=== PATIENT | male | born 1955 | race Caucasian/White ===

== ENCOUNTER 2017-01-08 13:22 | Emergency (ER) | payer OTHER ==
[~2017-01-08] VITALS: Ht 177.8 cm; Wt 111.4 kg
[2017-01-08 13:26] VITALS: TEMP 36.3; Ht 177.8 cm; Wt 111.4 kg
[2017-01-08] MEDS ORDERED: KETOROLAC TROMETHAMINE 30 MG/ML VIAL IV STA (13:43)
[2017-01-08] MEDS ORDERED: DEXAMETHASONE SOD INJ 10 MG/ML VIAL IV ONE (13:45)
[2017-01-08] MEDS ORDERED: MoRPHine SULFATE 4 MG/ML 1 ML CARP\\VIAL IV ONE (13:45)
[2017-01-08] MEDS ORDERED: ACT/45 PO (13:55)
[2017-01-08] MEDS ORDERED: GLIP10TA3 PO (13:55)
[2017-01-08] MEDS ORDERED: CLOP1TAB15 PO (13:55)
[2017-01-08] MEDS ORDERED: GABA-113 PO (13:55)
[2017-01-08] MEDS ORDERED: ATOR-24 PO (13:55)
[2017-01-08] MEDS ORDERED: ASPI81TA28 PO (13:55)
[2017-01-08] MEDS ORDERED: SITA100T3 PO (13:55)
[2017-01-08] MEDS ORDERED: LISI10TA PO (13:55)
[2017-01-08] MEDS ORDERED: METF1000 PO (13:55)
[2017-01-08] MEDS ORDERED: METF-841 (13:55)
[2017-01-08 14:05] LABS: BASO % 0.4 %; BASO ABS # 0.04 K/uL (0-0.2); COMPLETE YES; EOS % 0.9 %; HEMATOCRIT 46.2 % (42-52); IG% 0.6 %; LYMPH % 18.4 %; LYMPH ABS # 1.81 K/uL (1.2-3.4); MEAN CELL VOLUME 93.1 fL (80-100); MEAN CORPUSCULAR HEMOGLOBIN 32.1 pg (25-34); MEAN CORPUSCULAR HGB CONC 34.4 g/dl (32-36); MEAN PLATELET VOLUME 9.8 fL (7.4-10.4); MONO % 8.5 %; NEUT % 71.2 %; PLATELET COUNT 268 K/uL (130-400); RED BLOOD COUNT 4.96 M/uL (4.7-6.1); WHITE BLOOD COUNT 9.82 K/uL (4.8-10.8)
[2017-01-08 14:21] LABS: BUN/CREATININE RATIO 25.9 (10-20); CALCIUM 9.8 mg/dl (8.5-10.1); CREATININE 0.92 mg/dl (0.60-1.40); POTASSIUM 4.3 mmol/L (3.5-5.1)
--- NOTE | 2017-01-08 14:36 | DIAGNOSTIC IMAGING REPORT ---
L-SPINE MIN 4 VIEWS ROUTINE HISTORY: Pain Left side back/hip pain COMPARISON: None. FINDINGS: There is no fracture. No subluxation. Mild degenerative disc change throughout. No evidence for compression deformity. IMPRESSION: Mild degenerative change. No acute process. The above report was generated using voice recognition software. It may contain grammatical, syntax or spelling errors. Electronically signed by: Justin Smith M.D. 01/08/2017 2:34 PM Dictated Date/Time: 01/08/2017 2:34 PM
--- NOTE | 2017-01-08 14:37 | DIAGNOSTIC IMAGING REPORT ---
L PELVIS/UNILATERAL HIP 2-3VIEWS CLINICAL HISTORY: Left side back/hip pain pain COMPARISON: None. 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 No evidence for acetabular protrusion. Mild degenerative change. Cortical margins appear to be intact. There is no evidence for soft tissue swelling. IMPRESSION: 1. No acute process. 2. 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 The above report was generated using voice recognition software. It may contain grammatical, syntax or spelling errors. Electronically signed by: Justin Smith M.D. 01/08/2017 2:35 PM Dictated Date/Time: 01/08/2017 2:35 PM
[2017-01-08] MEDS ORDERED: PRED50TA PO (15:53)
[2017-01-08] MEDS ORDERED: OXYC1TAB3 PO (15:53)
[2017-01-08 16:22] VITALS: BP 136/76; PULSE 76; O2SAT 96
--- NOTE | 2017-01-08 20:52 | EMERGENCY ROOM VISIT NOTE ---
History First contact with patient: 13:36 Chief Complaint: HIP PAIN Stated Complaint: BACK HIP PAIN History of Present Illness The patient is a 61 year old male who presents to the Emergency Room with complaints of left-sided low back pain as well as left hip pain for the past 4 or 5 days. The patient did go to his primary care physician and was started on anti-inflammatories and a Medrol Dosepak. This may have had some mild improvement of symptoms initially, but his pain has returned. The patient does not recall a distinct injury or trauma to explain his symptoms. He does have pain radiating down the left leg. No difficulty using the bathroom. He is a diabetic controlled with oral medication. He has not had fever or chills. No chronic back pain. He has not had imaging studies. He is walking with a walker at home to help prevent falling. He rates his discomfort a 6/10 that worsens with certain movement. Review of Systems More than 10 systems were reviewed and otherwise negative with the exception of history of present illness. Past Medical/Surgical History History of diabetes, hypertension, dyslipidemia, and cardiac disease Family History No pertinent family history Social History Smoking Status: Never Smoker Housing Status: lives with family Current/Historical Medications Scheduled Aspirin (Aspirin Ec), 81 MG PO DAILY Atorvastatin (Lipitor), 40 MG PO DAILY Clopidogrel (Plavix), 75 MG PO DAILY Gabapentin (Neurontin), 300 MG PO DAILY Glipizide (Glucotrol), 10 MG PO BID Lisinopril (Prinivil), 10 MG PO DAILY Metformin Hcl (Glucophage), 1,000 MG PO BID Oxycodone Immediate Rel Tab (Roxicodone Ir), 1-2 TAB PO Q6 Pioglitazone Hcl (Actos), 45 MG PO DAILY Prednisone (Prednisone), 50 MG PO DAILY Sitagliptin Phosphate (Januvia), 100 MG PO DAILY Physical Exam Vital Signs Date Time Temp Pulse Resp B/P (MAP) Pulse Ox O2 Delivery O2 Flow Rate FiO2 01/08/17 16:22 76 20 136/76 96 01/08/17 15:00 76 18 133/73 99 Room Air 01/08/17 13:26 36.3 84 18 161/83 97 Room Air Physical Exam VITALS: Vitals are noted on the nurse's note and reviewed by myself. Vital signs stable. GENERAL: Well-developed, well-nourished, white male, who is in no acute distress and resting comfortably. Patient is cooperative with the examination. HEAD: Normocephalic atraumatic. HEART: Regular rate and rhythm without murmurs gallops or rubs. LUNGS: Clear to auscultation bilaterally without wheezes, rales or rhonchi. No retractions or accessory muscle use. ABDOMEN: Positive normal bowel sounds x 4. Soft, nontender, without masses or organomegaly. No guarding or rebound tenderness. MUSCULOSKELETAL: Mild tenderness appreciated in the lower left lumbar region. No distinct step-off or severe paravertebral spasm. There appears to be some palpable tenderness into the very low left buttocks and into the left proximal femur. No erythema or edema suggestive of infection is noted. Negative straight leg raise. No saddle paresthesias. NEURO: Patient was alert and oriented to person place and time. CN II through XII grossly intact. Deep tendon reflexes 2+ throughout. Medical Decision & Procedures ER Provider Diagnostic Interpretation: L-SPINE MIN 4 VIEWS ROUTINE HISTORY: Pain Left side back/hip pain COMPARISON: None. FINDINGS: There is no fracture. No subluxation. Mild degenerative disc change throughout. No evidence for compression deformity. IMPRESSION: Mild degenerative change. No acute process. L PELVIS/UNILATERAL HIP 2-3VIEWS CLINICAL HISTORY: Left side back/hip pain pain COMPARISON: None. 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 No evidence for acetabular protrusion. Mild degenerative change. Cortical margins appear to be intact. There is no evidence for soft tissue swelling. IMPRESSION: 1. No acute process. 2. 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 Laboratory Results 01/08/17 13:55 Red Blood Count 4.96, Mean Corpuscular Volume 93.1, Mean Corpuscular Hemoglobin 32.1, Mean Corpuscular Hemoglobin Concent 34.4, Mean Platelet Volume 9.8, Neutrophils (%) (Auto) 71.2, Lymphocytes (%) (Auto) 18.4, Monocytes (%) (Auto) 8.5, Eosinophils (%) (Auto) 0.9, Basophils (%) (Auto) 0.4, Neutrophils # (Auto) 6.99, Lymphocytes # (Auto) 1.81, Monocytes # (Auto) 0.83, Eosinophils # (Auto) 0.09, Basophils # (Auto) 0.04 01/08/17 13:55 Test 10/28/17 13:55 White Blood Count 9.82 K/uL (4.8-10.8) Red Blood Count 4.96 M/uL (4.7-6.1) Hemoglobin 15.9 g/dL (14.0-18.0) Hematocrit 46.2 % (42-52) Mean Corpuscular Volume 93.1 fL (80-100) Mean Corpuscular Hemoglobin 32.1 pg (25-34) Mean Corpuscular Hemoglobin Concent 34.4 g/dl (32-36) Platelet Count 268 K/uL (130-400) Mean Platelet Volume 9.8 fL (7.4-10.4) Neutrophils (%) (Auto) 71.2 % Lymphocytes (%) (Auto) 18.4 % Monocytes (%) (Auto) 8.5 % Eosinophils (%) (Auto) 0.9 % Basophils (%) (Auto) 0.4 % Neutrophils # (Auto) 6.99 K/uL (1.4-6.5) Lymphocytes # (Auto) 1.81 K/uL (1.2-3.4) Monocytes # (Auto) 0.83 K/uL (0.11-0.59) Eosinophils # (Auto) 0.09 K/uL (0-0.5) Basophils # (Auto) 0.04 K/uL (0-0.2) RDW Standard Deviation 48.1 fL (36.4-46.3) RDW Coefficient of Variation 14.3 % (11.5-14.5) Immature Granulocyte % (Auto) 0.6 % Immature Granulocyte # (Auto) 0.06 K/uL (0.00-0.02) Erythrocyte Sedimentation Rate 16 mm/hr (0-14) Anion Gap 5.0 mmol/L (3-11) Est Creatinine Clear Calc Drug Dose 104.0 ml/min Estimated GFR () 102.9 Estimated GFR (Non- 88.8 BUN/Creatinine Ratio 25.9 (10-20) Calcium Level 9.8 mg/dl (8.5-10.1) Total Bilirubin 0.3 mg/dl (0.2-1) Aspartate Amino Transf (AST/SGOT) 8 U/L (15-37) Alanine Aminotransferase (ALT/SGPT) 20 U/L (12-78) Alkaline Phosphatase 69 U/L (45-117) Total Protein 7.9 gm/dl (6.4-8.2) Albumin 4.0 gm/dl (3.4-5.0) Globulin 3.9 gm/dl (2.5-4.0) Albumin/Globulin Ratio 1.0 (0.9-2) Medications Administered Medications (Trade) Dose Ordered Sig/Natali Route Start Time Stop Time Status Last Admin Dose Admin Dexamethasone Sodium Phosphate (Decadron Inj) 10 mg NOW ONCE IV 01/08/17 13:45 01/08/17 13:46 DC 01/08/17 13:59 10 MG Morphine Sulfate (MoRPHine SULFATE INJ) 4 mg NOW ONCE IV 01/08/17 13:45 01/08/17 13:46 DC 01/08/17 14:03 4 MG Ketorolac Tromethamine (Toradol Inj) 30 mg NOW STAT IV 01/08/17 13:43 01/08/17 13:45 DC 01/08/17 13:59 30 MG ED Course Physical exam and history were performed. Nursing notes, EMR, and Medication List were personally reviewed. Patient appears to have some low back pain that is radiating into his left leg. The patient has some tenderness into his buttocks which could represent sciatica or other etiology. There does seem to be a positional component with the discomfort, however I did elect to perform an IV and check blood work. The patient was medicated as above. Plain films were performed. The patient does not have a significantly elevated white blood cell count, anemia, bandemia, or significant electrolytic imbalance. His sugar is within expected levels. Sedimentation rate is negative. X-rays do not show evidence of significant acute findings. On reevaluation the patient continued to feel well. He is stable for discharge and evidently has an appointment in 2 days with his primary care physician. The patient will be given a course of prednisone and oxycodone. He is to monitor her sugar shortly. He was otherwise invited back to the ER with any new , worsening, or concerning symptoms. He was discharged home under the care of family who are acting as the salesperson driver today. The chart was completed utilizing [employer] Voice Recognition Software. Grammatical errors, random word insertions, pronoun errors, and incomplete sentences are an occasional consequence of this system due to software limitations, ambient noise, and hardware issues. Any formal questions or concerns about the content, text, or information contained within the body of this dictation should be directly addressed to the provider for clarification. . Medical Decision Differential diagnosis: Etiologies such as musculoskeletal, disc herniation, fracture, aortic disease, metastatic disease, cord compression, discitis, infection, renal colic, gastrointestinal, acute exacerbation of chronic back pain, sciatica, cauda equina, as well as others were entertained. Impression Primary Impression: Low back pain with sciatica Departure Information Dispostion Home / Self-Care Condition GOOD Prescriptions Prednisone (Prednisone) 50 Mg Tab 50 MG PO DAILY for 4 Days, #4 TAB Prov: Inocencio Pelaez PA-C 01/08/17 Oxycodone Immediate Rel Tab (ROXICODONE IR) 5 Mg Tab 1-2 TAB PO Q6 for Pain, #24 TAB Prov: Inocencio Pelaez PA-C 01/08/17 Forms HOME CARE DOCUMENTATION FORM, IMPORTANT VISIT INFORMATION Patient Instructions [facility] Additional Instructions You were seen and evaluated today on an emergency basis only. This is not a substitute for, or an effort to provide, complete comprehensive medical care. It is not possible to recognize and treat all injuries or illnesses in a single emergency department visit. For this reason it is recommended that you followup with your primary care physician as scheduled on Tuesday. For baseline pain relief you may alternate ibuprofen and acetaminophen every 4 hours for pain control. Take 600 mg ibuprofen (Advil) and then 4 hours later take 1000 mg acetaminophen (Tylenol). Do not take more than 3000 mg acetaminophen in a single day. Oxycodone (OxyIR) 5mg: Take ONE or TWO pills every SIX hours for breakthrough pain. Avoid alcohol, operating machinery or dangerous equipment, working on ladders or roofs, DRIVING, or situations where being under the influence may be dangerous. It is recommended to use an [id number] stool softener such as Colace, 100mg twice daily while taking this medication to avoid constipation. Take prednisone daily for the next 4 days. Watch your sugar while taking this medication. If you have sugar greater than 400 then stop this medicine. You are welcome to return to the emergency department anytime with new, worsening, or concerning symptoms.
== END 2017-01-08 16:24 | disposition home or self-care (01) ==
LOC: C.EDB 13:25 → C.EDA 16:24
DX: M54.42 Lumbago with sciatica, left side (principal); E11.9 Type 2 diabetes mellitus without complications; I10 Essential (primary) hypertension; E78.5 Hyperlipidemia, unspecified; I25.10 Atherosclerotic heart disease of native coronary artery without angina pectoris; Z79.82 Long term (current) use of aspirin

== ENCOUNTER 2019-08-01 11:48 | Observation (INO) ==
[2019-08-01] MEDS ORDERED: SODIUM CHLORIDE 0.9% 500 ML IV SCH (12:30)
--- NOTE | 2019-08-01 12:31 | Emergency Department Note ---
Impression & Plan RUQ abdominal pain, Acute pancreatitis ED Provider Note NAME: BERTRAND BOTELLO AGE: 64 SEX: M : 1955 ARRIVES VIA: Walk-In INFORMANT: [Patient] ED PROVIDER(S): [Beto Marroquin MD] CHIEF COMPLAINT: Right upper quadrant abdominal pain HISTORY OF PRESENT ILLNESS: The patient is a 64-year-old male presents with 6 days of right upper quadrant abdominal pain. The pain does radiate to the back and is a 6/10. It is described as a burning and an ache. Sitting still makes it better, movement makes it worse. Eating does not change the pain. There has been no nausea or diarrhea, no fever. The patient states that the pain really never goes completely away but again, sitting still seems to make it better. There has been no trauma. No urinary complaint. The patient states that he did see his doctor via telehealth yesterday, and an ultrasound was recommended. The patient was referred today for work-up. Of note, the patient does have a history of a Flo fundoplication. REVIEW OF SYSTEMS: See HPI for pertinent positives and negatives. A total of ten systems were reviewed and were otherwise negative. PMHx/PSHx: See Below SOCIAL HISTORY: See Below. PHYSICAL EXAM: GENERAL: Patient is in no acute distress. HEENT: No acute trauma, normocephalic atraumatic, mucous membranes moist, no nasal congestion, no scleral icterus. NECK: No stridor, no adenopathy, no meningismus, trachea is midline. LUNGS: Clear to auscultation bilaterally, no wheeze, no rhonchi, breath sounds equal. HEART: Without murmurs gallops or rubs, regular rate and rhythm. ABDOMEN: Soft, moderately tender in the right upper quadrant, bowel sounds positive, no hernias, no peritonitis. EXTREMITIES: No cyanosis or edema, full range of motion of all the joints withou t pain or difficulty, no signs for acute trauma. NEUROLOGIC: Oriented x 3, no acute motor or sensory deficits, no focal weakness. SKIN: No rash, no jaundice, no diaphoresis. DIFFERENTIAL DIAGNOSIS: Appendicitis, testicular torsion, infections, diverticulitis, UTI, obstruction, mesenteric ischemia, aortic pathology, inflammatory bowel disease, renal colic, PUD, pancreatitis, biliary pathology, hernia, volvulus, constipation, as well as other pathologies. EMERGENCY DEPARTMENT COURSE/PROCEDURES: Continuous Cardiac Monitoring: An order was placed for continuous cardiac monitoring. The monitor shows a rate of 81 with normal sinus rhythm. MEDICAL DECISION MAKING: There is no leukocytosis or concerning anemia. No significant electrolyte abnormality or kidney failure. No worrisome liver enzyme elevation. Lipase was not elevated. Urinalysis shows glucose, no evidence for infection, no significant hematuria. Chest film did not show free air, pneumonia or pneumothorax. Gallbladder ultrasound was read as unremarkable, no gallstones. Abdominal and pelvis CT shows evidence for pancreatitis, there was no bowel obstruction. The patient did not want anything for pain. He was given IV saline for hydration. The patient presents with ongoing epigastric/right upper quadrant abdominal pain. Work-up here does show pancreatitis as the likely cause for his discomfort. Given his discomfort for several days, given the findings on CT scan, a hospitalization was felt warranted. At this point, the cause for the pancreatitis is not clear. I spoke to the patient and case management. The on-call hospitalist has been consulted. 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 Diabetes (Chronic) Diabetes mellitus, type II H/O low back pain resolved since back surgery History of gastroesophageal reflux (GERD) HTN (hypertension) Hyperlipidemia Kidney stones Obesity Transient ischemic attack (TIA) 10 YEARS AGO - [facility] Surgical History History of appendectomy History of colonoscopy History of ear surgery RT History of laminectomy History of Flo fundoplication History of orchiectomy, unilateral RT History of surgery ANAL FISSURE REPAIR Family History Other Heart disease Stroke Social History Preferred Language: Arabic Communication Ability: Effective 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 Beliefs That Will Affect Care: None Current Living Situation: Spouse Other Information That Helps Us Care for You: No Feels Safe at Home: Yes Safety Concerns: Feels Safe At This Time Smoking Status: Former smoker Second Hand Exposure: No ; Hx Alcohol Use: No Hx Substance Use: No Allergies Allergies Allergy/AdvReac Type Severity Reaction Status Date / Time No Known Allergies Allergy Verified 08/01/19 12:35 Home Meds Home Medications Medication Instructions Recorded Confirmed aspirin 81 mg PO DAILY 01/15/18 08/01/19 atorvastatin [Lipitor] 40 mg PO DAILY 01/15/18 08/01/19 clopidogrel 75 mg PO DAILY 01/15/18 08/01/19 glipizide 10 mg PO BIDM 01/15/18 08/01/19 lisinopril 10 mg PO DAILY 01/15/18 08/01/19 metformin 1,000 mg PO BID 01/15/18 08/01/19 pioglitazone [Actos] 45 mg PO DAILY 01/15/18 08/01/19 sitagliptin [Januvia] 100 mg PO DAILY 01/15/18 08/01/19 gabapentin 300 mg PO HS 01/18/18 08/01/19 cholecalciferol (vitamin D3) 25 mcg PO DAILY 08/01/19 08/01/19 [Vitamin D3] cyanocobalamin (vitamin B-12) 1,000 mcg PO DAILY 08/01/19 08/01/19 [Vitamin B-12] Results & Data (ED) Vital Signs Vital Signs - 24 hr 08/01/19 11:53 08/01/19 12:27 08/01/19 12:51 Temperature 36.7 C Temperature Source Oral Pulse Rate 84 83 Pulse Rate from SpO2 Sensor 83 Pulse Rhythm Respiratory Rate 18 12 Respiratory Effort / Characteristics Non-Labored Spontaneous Respiratory Depth Normal Respiratory Pattern Regular Blood Pressure 159/93 H 154/89 H Blood Pressure Mean 115 108 Blood Pressure Position Sitting Pulse Oximetry 98 96 Oxygen Delivery Method Room Air Room Air Room Air Sepsis Recent Fever Within 48 Hours No Sepsis New/Unexplained Change in Mental Status No Sepsis Action Taken by Nursing No Action Required 08/01/19 13:00 08/01/19 13:45 08/01/19 13:54 Temperature Temperature Source Pulse Rate 83 62 78 Pulse Rate from SpO2 Sensor 82 78 Pulse Rhythm Regular Respiratory Rate 19 16 18 Respiratory Effort / Characteristics Respiratory Depth Respiratory Pattern Blood Pressure 128/66 140/97 Blood Pressure Mean 77 118 Blood Pressure Position Pulse Oximetry 95 98 98 Oxygen Delivery Method Room Air Room Air Room Air Sepsis Recent Fever Within 48 Hours Sepsis New/Unexplained Change in Mental Status Sepsis Action Taken by Nursing 08/01/19 14:00 08/01/19 14:47 08/01/19 15:00 Temperature Temperature Source Pulse Rate 80 79 81 Pulse Rate from SpO2 Sensor 80 79 80 Pulse Rhythm Respiratory Rate 17 17 17 Respiratory Effort / Characteristics Respiratory Depth Respiratory Pattern Blood Pressure 144/76 H 146/85 H 161/87 H Blood Pressure Mean 96 116 121 Blood Pressure Position Pulse Oximetry 98 98 98 Oxygen Delivery Method Room Air Room Air Sepsis Recent Fever Within 48 Hours Sepsis New/Unexplained Change in Mental Status Sepsis Action Taken by Nursing 08/01/19 15:30 Temperature Temperature Source Pulse Rate 81 Pulse Rate from SpO2 Sensor 81 Pulse Rhythm Respiratory Rate 17 Respiratory Effort / Characteristics Respiratory Depth Respiratory Pattern Blood Pressure 149/88 H Blood Pressure Mean 120 Blood Pressure Position Pulse Oximetry 99 Oxygen Delivery Method Room Air Sepsis Recent Fever Within 48 Hours Sepsis New/Unexplained Change in Mental Status Sepsis Action Taken by [facility] Medications Current Medication List: was personally reviewed by me Laboratory Data Attestation: I reviewed the patient's lab results. Result diagrams: 08/01/19 12:45 08/01/19 12:45 Lab Results 08/01/19 08/01/19 08/01/19 Range/Units 12:45 12:45 12:45 WBC 7.54 (4.8-10.8) K/uL RBC 5.03 (4.7-6.1) M/uL Hgb 15.8 (14.0-18.0) g/dL Hct 46.1 (42-52) % MCV 91.7 (80-100) fL MCH 31.4 (25-34) pg MCHC 34.3 (32-36) g/dL RDW Std Deviation 45.6 (36.4-46.3) fL RDW Coeff of Catherine 13.8 (11.5-14.5) % Plt Count 232 (130-400) K/uL MPV 10.1 (7.4-10.4) fL Immature Gran % (Auto) 0.4 % Neut % (Auto) 64.0 % Lymph % (Auto) 24.4 % [place] % (Auto) 9.2 % Eos % (Auto) 1.5 % Baso % (Auto) 0.5 % Immature Gran # (Auto) 0.03 H (0.00-0.02) K/uL Neut # (Auto) 4.83 (1.4-6.5) K/uL Lymph # (Auto) 1.84 (1.2-3.4) K/uL [place] # (Auto) 0.69 H (0.11-0.59) K/uL Eos # (Auto) 0.11 (0-0.5) K/uL Baso # (Auto) 0.04 (0-0.2) K/uL Sodium 138 (136-145) mmol/L Potassium 4.5 (3.5-5.1) mmol/L Chloride 103 (98-107) mmol/L Carbon Dioxide 25 (21-32) mmol/L Anion Gap 10.0 (3-11) BUN 15 (7-18) mg/dl Creatinine 1.05 (0.6-1.4) mg/dl Est Cr Clr Drug Dosing Not Reportable Est GFR ( Amer) 85.9 Est GFR (Non-Af Amer) 74.1 BUN/Creatinine Ratio 14.5 (10-20) Glucose 295 H (70-99) mg/dl Calcium 10.0 (8.5-10.1) mg/dl Total Bilirubin 0.7 (0.2-1) mg/dl AST 11 L (15-37) U/L ALT 30 (12-78) U/L Alkaline Phosphatase 117 (45-117) U/L Troponin I 0.029 (0-0.045) ng/ml Total Protein 7.8 (6.4-8.2) gm/dl Albumin 3.9 (3.4-5.0) gm/dl Globulin 3.9 (2.5-4.0) gm/dl Albumin/Globulin Ratio 1.0 (0.9-2) Lipase 102 (73-393) U/L Urine Color Yellow Urine Appearance Clear (Clear) Urine pH 5.0 (4.5-7.5) Ur Specific [place] > 1.045 H (1.000-1.030) Urine Protein Trace H (Negative) Urine Glucose (UA) 3+ H (Negative) Urine Ketones Negative (Negative) Urine Blood Negative (Negative) Urine Nitrite Negative (Negative) Urine Bilirubin Negative (Negative) Urine Urobilinogen Negative (Negative) Ur Leukocyte Esterase Negative (Negative) Urine WBC (Auto) 1-5 (0-5) /hpf Urine RBC (Auto) 0-4 (0-4) /hpf U Hyaline Cast (Auto) 1-5 (0-5) /lpf U Epithel Cells (Auto) 0-5 (0-5) /lpf Urine Bacteria (Auto) Negative (Negative) Administered Medications Lactated Ringer's (Lr) 1,000 mls @ 200 mls/hr IV .Q5H FAWAD Stop: 08/02/19 03:01 Last Admin: 08/01/19 17:12 Dose: 200 mls/hr Documented by: [id number] Morphine Sulfate (Morphine Sulfate) 3 mg IV Q4H PRN PRN Reason: Severe Pain Stop: 08/15/19 17:01 Last Admin: 08/01/19 17:43 Dose: 3 mg Documented by: [id number] Discontinued Medications Sodium Chloride (Nss) 500 mls @ 999 mls/hr IV .Q31M FAWAD Stop: 08/01/19 13:00 Last Infusion: 08/01/19 13:44 Dose: 0 mls/hr Documented by: [id number] Admin: 08/01/19 12:49 Dose: 999 mls/hr Documented by: [id number] Ioversol (Optiray 320 100ml) 94 ml IV ONCE PRN PRN Reason: Interaction Checking Stop: 08/05/19 14:31 Last Admin: 08/01/19 14:32 Dose: 94 ml Documented by: [id number] Imaging Data Radiologist's Impression: XR chest 1V portable HISTORY: Right-sided chest pain. COMPARISON: Chest 01/20/2018. FINDINGS: The lungs are clear. Cardiac silhouette is normal in size. No pleural effusions. No pneumothorax. IMPRESSION: No acute process. CT OF THE ABDOMEN AND PELVIS WITH CONTRAST CLINICAL HISTORY: Right upper quadrant abdominal pain. COMPARISON STUDY: CT of the abdomen and pelvis January 15, 2018. Right upper quadrant ultrasound performed earlier today. TECHNIQUE: Following IV administration of 94 mL of Optiray-320, axial images of the abdomen and pelvis were obtained from the lung bases to the proximal femurs. Images were reviewed in the axial, sagittal, and coronal planes. IV contrast was administered without complication. Automated exposure control was utilized for the study. A dose lowering technique was utilized adhering to the principles of ALARA. CT DOSE: 1560.16 mGy.cm FINDINGS: Lung bases are unremarkable. There is fatty infiltration of the liver. The spleen and adrenal gland are unremarkable. Note is made of a 1.4 cm cyst within lower pole of the right kidney. There is a probable cyst within the midpole of the left kidney. A few pancreatic parenchymal calcifications are no hilad. There is mild infiltration centered on the uncinate process of the pancreas. No peripancreatic fluid collections are present. No biliary or pancreatic ductal dilatation is present. There is no evidence for a bowel obstruction. Caliber and wall thickness of small and large bowel are normal. No suspicious osseous lesions are present. No urinary calculi are identified. IMPRESSION: 1. Mild infiltration adjacent to the uncinate process of the pancreas suggestive of acute pancreatitis. A few pancreatic parenchymal calcifications which suggest chronic pancreatitis. 2. Fatty infiltration of the liver. 3. No bowel obstruction. Blood Pressure Blood Pressure Findings: Elevated blood pressure Blood Pressure Disposition: further management by hospitalist Discharge Plan Visit Data *Final* Discharge Date/Time: 08/01/19 16:34 Chief Complaint: Abdominal Pain Stated Complaint: PAIN IN RT SIDE ED Provider: Beto Marroquin Discharge Problem: RUQ abdominal pain, Acute pancreatitis Patient Disposition: Admitted As Inpatient Condition: Good Discharge Instructions Interventions: ED Discharge Assessment Last Done: 08/01/19 16:34 Discharge Problem: Acute pancreatitis Qualifiers: Pancreatitis type: unspecified pancreatitis type Acute pancreatitis complication: no infection or necrosis Qualified Code(s): K85.90 - Acute pancreatitis without necrosis or infection, unspecified
[2019-08-01 12:55] LABS: Basophils # (auto) 0.04 K/uL (0-0.2); Basophils % (auto) 0.5 %; Eosinophils # (auto) 0.11 K/uL (0-0.5); Eosinophils % (auto) 1.5 %; Hematocrit (blood only) 46.1 % (42-52); Hemoglobin 15.8 g/dL (14.0-18.0); Immature Granulocytes # (auto) 0.03 K/uL (0.00-0.02); Immature Granulocytes % (auto) 0.4 %; Lymphocytes # (auto) 1.84 K/uL (1.2-3.4); Lymphocytes % (auto) 24.4 %; Mean Corpuscular Hemoglobin 31.4 pg (25-34); Mean Corpuscular Hgb Conc 34.3 g/dL (32-36); Mean Corpuscular Volume 91.7 fL (80-100); Mean Platelet Volume 10.1 fL (7.4-10.4); Monocytes # (auto) 0.69 K/uL (0.11-0.59); Monocytes % (auto) 9.2 %; Neutrophils # (auto) 4.83 K/uL (1.4-6.5); Platelet Count 232 K/uL (130-400); RDW Coefficient of Variation 13.8 % (11.5-14.5); RDW Standard Deviation 45.6 fL (36.4-46.3); Red Blood Count 5.03 M/uL (4.7-6.1); White Blood Count 7.54 K/uL (4.8-10.8)
--- NOTE | 2019-08-01 13:07 | XRay Report ---
XR chest 1V portable HISTORY: Right-sided chest pain. COMPARISON: Chest 01/20/2018. FINDINGS: The lungs are clear. Cardiac silhouette is normal in size. No pleural effusions. No pneumot horax. IMPRESSION: No acute process. ACT 112: Negative or not required by law. Electronically signed by: Steve Dao M.D. 08/01/2019 1:06 PM
[2019-08-01 13:20] LABS: Alanine Aminotransferase 30 U/L (12-78); Albumin Level 3.9 gm/dl (3.4-5.0); Aspartate Aminotransferase 11 U/L (15-37); BUN Creatinine Ratio 14.5 (10-20); Blood Urea Nitrogen 15 mg/dl (7-18); Carbon Dioxide 25 mmol/L (21-32); Chloride 103 mmol/L (98-107); Est GFR (African American) 85.9; Est GFR (Non-African American) 74.1; Glucose 295 mg/dl (70-99); Lipase 102 U/L (73-393); Potassium 4.5 mmol/L (3.5-5.1); Sodium 138 mmol/L (136-145)
[2019-08-01 13:21] LABS: Bacteria Urine Automated Negative (Negative); Bilirubin Urine Negative (Negative); Blood Urine Negative (Negative); Color Urine Yellow; Epithelial Cell Urine Auto 0-5 /lpf (0-5); Glucose Urine UA 3+ (Negative); Ketones Urine Negative (Negative); Leukocyte Esterase Urine Negative (Negative); Nitrite Urine Negative (Negative); Protein Urine Trace (Negative); RBC Urine Automated 0-4 /hpf (0-4); Specific Gravity Urine > 1.045 (1.000-1.030); Urobilinogen Urine Negative (Negative)
[2019-08-01 13:25] LABS: Alkaline Phosphatase 117 U/L (45-117); Bilirubin,Total 0.7 mg/dl (0.2-1); Globulin 3.9 gm/dl (2.5-4.0); Total Protein 7.8 gm/dl (6.4-8.2); Troponin I 0.029 ng/ml (0-0.045)
[2019-08-01 13:29] LABS: Appearance Urine Clear (Clear)
--- NOTE | 2019-08-01 13:45 | Ultrasound Report ---
ABDOMINAL ULTRASOUND, RIGHT UPPER QUADRANT HISTORY: ruq pain. COMPARISON: Abdomen and pelvis CT 01/15/2018. FINDINGS: Pancreas: The pancreatic head and tail are obscured by overlying bowel gas. The remaining portions of the pancreas are within normal limits. Liver: The liver is echogenic consistent with fatty change. Mildly enlarged measuring 19 cm in length . Gallbladder: No gallbladder wall thickening. No gallstones. CBD: 5 mm. Right kidney: No hydronephrosis. IMPRESSION: 1. Normal gallbladder. No gallstones. 2. Hepatomegaly demonstrating fatty change. ACT 112: Negative or not required by law. Electronically signed by: Steve Dao M.D. 08/01/2019 1:44 PM
[2019-08-01] MEDS ORDERED: IOVERSOL 100ml IV PRN (14:32)
--- NOTE | 2019-08-01 15:13 | CT Scan Report ---
CT OF THE ABDOMEN AND PELVIS WITH CONTRAST CLINICAL HISTORY: Right upper quadrant abdominal pain. COMPARISON STUDY: CT of the abdomen and pelvis January 15, 2018. Right upper quadrant ultrasound per formed earlier today. TECHNIQUE: Following IV administration of 94 mL of Optiray-320, axial images of the abdomen and pelvi s were obtained from the lung bases to the proximal femurs. Images were reviewed in the axial, sagitt al, and coronal planes. IV contrast was administered without complication. Automated exposure contro l was utilized for the study. A dose lowering technique was utilized adhering to the principles of A SHIVAM. CT DOSE: 1560.16 mGy.cm FINDINGS: Lung bases are unremarkable. There is fatty infiltration of the liver. The spleen and adren al gland are unremarkable. Note is made of a 1.4 cm cyst within lower pole of the right kidney. There is a probable cyst within the midpole of the left kidney. A few pancreatic parenchymal calcification s are noted. There is mild infiltration centered on the uncinate process of the pancreas. No peripanc reatic fluid collections are present. No biliary or pancreatic ductal dilatation is present. There is no evidence for a bowel obstruction. Caliber and wall thickness of small and large bowel are normal. No suspicious osseous lesions are present. No urinary calculi are identified. IMPRESSION: 1. Mild infiltration adjacent to the uncinate process of the pancreas suggestive of acute pancreatiti s. A few pancreatic parenchymal calcifications which suggest chronic pancreatitis. 2. Fatty infiltration of the liver. 3. No bowel obstruction. ACT 112: Negative or not required by law. Electronically signed by: Kristian Duckworth M.D. 08/01/2019 3:11 PM
--- NOTE | 2019-08-01 16:42 | History & Physical Report ---
Date of Service August 01, 2019 Assessment & Plan (1) RUQ abdominal pain: (2) Acute pancreatitis: Possible pancreatitis Pt is 64 y/o M with PMH DM II, HTN, dyslipidemia, possible TIA, history denies any fundoplication, history of testicular cancer s/p right orchiectomy and chemo in 2010 scented to ER with complaint of right upper quadrant burning pain x5 days. Decreased appetite. Denies fever/chills, N/V/D/C In ER pt afebrile, P: 84, R: 18, BP: 159/93, 98% on RA. No leukocytosis, LFTs W NL, Lipase normal Gallbladder US 1. Normal gallbladder. No gallstones. 2. Hepatomegaly demonstrating fatty change. CT abd/pelvis:1. Mild infiltration adjacent to the uncinate process of the pancreas suggestive of acute pancreatitis. A few pancreatic parenchymal calcifications which suggest chronic pancreatitis. 2. Fatty infiltration of the liver. 3. No bowel obstruction. -DDX: pancreatitis, musculoskeletal abdominal pain -NPO -LR @200ml/hr -Zofran, morphine prn -Lipase, CMP, CBC, lipid panel in am -May need to consider GI consult (3) Diabetes mellitus, type II: A1c: 10.8 on 07/02/2019 BSG 295 in ER -Hold glipizide, metformin, actos, januvia -Novolog, Lantus sliding scale per protocol (4) Transient ischemic attack (TIA): -Continue aspirin, plavix (5) HTN (hypertension): -Continue lisinopril (6) Hyperlipidemia: -Hold statin for now while NPO DVT Prophylaxis -SCDs Full Code as per discussion with pt Follows with Dr Liocna for routine care Pt was seen and care coordinated with Dr Eden. See addendum History of Present Illness Chief Complaint: abdominal pain Primary Care Provider: Zechariah Licona MD Pt is 64 y/o M with PMH DM II, HTN, dyslipidemia, possible TIA, history denies any fundoplication, history of testicular cancer s/p right orchiectomy and chemo in 2010 scented to ER with complaint of right upper quadrant pain x5 days.Patient describes the pain as burning sensation. Has been applying heating pad or taking a warm shower which helps relieve pain sometimes. Patient reports decreased appetite. Denies any increased abdominal pain with eating. Denies nausea, vomiting, diarrhea, constipation, fever, chills. This morning had half a cup of milk and a cookie. Patient states that he lives 40 pound bags of mulch. Denies any known injury or trauma. Denies any new medications or medication changes. Denies diaphoresis, MCKEON, dizziness, syncope, vision changes, neck pain, CP, SOB, orthopnea, palpitations, cough, sore throat, choking, otalgia, rhinorrhea, paresthesias, weakness, extremity weakness, extremity edema, rashes, urinary symptoms. Allergies Allergy/AdvReac Type Severity Reaction Status Date / Time No Known Allergies Allergy Verified 08/01/19 12:35 Home Medications Home Medications Medication Instructions Recorded Confirmed Type aspirin 81 mg PO DAILY 01/15/18 08/01/19 History atorvastatin [Lipitor] 40 mg PO DAILY 01/15/18 08/01/19 History clopidogrel 75 mg PO DAILY 01/15/18 08/01/19 History glipizide 10 mg PO BIDM 01/15/18 08/01/19 History lisinopril 10 mg PO DAILY 01/15/18 08/01/19 History metformin 1,000 mg PO BID 01/15/18 08/01/19 History pioglitazone [Actos] 45 mg PO DAILY 01/15/18 08/01/19 History sitagliptin [Januvia] 100 mg PO DAILY 01/15/18 08/01/19 History gabapentin 300 mg PO HS 01/18/18 08/01/19 History cholecalciferol (vitamin D3) 25 mcg PO DAILY 08/01/19 08/01/19 History [Vitamin D3] cyanocobalamin (vitamin B-12) 1,000 mcg PO DAILY 08/01/19 08/01/19 History [Vitamin B-12] 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 Diabetes (Chronic) Diabetes mellitus, type II H/O low back pain resolved since back surgery History of gastroesophageal reflux (GERD) HTN (hypertension) Hyperlipidemia Kidney stones Obesity [facility] Surgical History History of appendectomy History of colonoscopy History of ear surgery RT History of laminectomy History of Flo fundoplication History of orchiectomy, unilateral RT History of surgery ANAL FISSURE REPAIR Family History Other Heart disease Stroke Social History Preferred Language: Bahraini Communication Ability: Effective Toe Stripper Required: No Beliefs That Will Affect Care: None Current Living Situation: Spouse Feels Safe at Home: Yes Smoking Status: Former smoker Second Hand Exposure: No ; Hx Alcohol Use: No Hx Substance Use: No Review of Systems Review of Systems: All systems reviewed & are unremarkable except as noted in HPI & below Physical Exam Physical Exam: General: no distress, obese Head: normocephalic, atraumatic Eyes: PERRL, EOM's intact, conjunctiva non-injected, anicteric ENT: normal inspection external ears, nose, mucous membranes moist Neck: supple, trachea midline Lungs: clear, no respiratory distress, no wheezing/rhonchi/rales CV: RRR, no murmur, no pretibial edema Abd: normal BS, soft, protuberant, mild tenderness to palpation RUQ and epigastric region without rebound or guarding; no rashes or skin discoloration noted Ext: no cyanosis, no calf tenderness Neuro: A&O x 3, no focal deficits noted, normal affect Skin: warm, dry Results & Data Results & Data ([facility]) Vital Signs (Past 12 Hours) Vital Signs Temp Pulse Resp BP Pulse Ox 08/01/19 16:30 88 20 163/92 H 99 08/01/19 16:00 78 17 142/92 H 98 08/01/19 15:30 81 17 149/88 H 99 08/01/19 15:00 81 17 161/87 H 98 08/01/19 14:47 79 17 146/85 H 98 08/01/19 14:00 80 17 144/76 H 98 08/01/19 13:54 78 18 140/97 98 08/01/19 13:45 62 16 98 08/01/19 13:00 83 19 128/66 95 08/01/19 12:51 83 12 154/89 H 96 08/01/19 11:53 36.7 C 84 18 159/93 H 98 Laboratory Results Short CBC 08/01/19 08/01/19 Range/Units 12:45 12:45 WBC 7.54 (4.8-10.8) K/uL Hgb 15.8 (14.0-18.0) g/dL Hct 46.1 (42-52) % Plt Count 232 (130-400) K/uL Troponin I 0.029 (0-0.045) ng/ml BMP 08/01/19 12:45 Sodium 138 Potassium 4.5 Chloride 103 Carbon Dioxide 25 BUN 15 Creatinine 1.05 Glucose 295 H Calcium 10.0 Cardiac Enzymes 08/01/19 Range/Units 12:45 Troponin I 0.029 (0-0.045) ng/ml Liver Function 08/01/19 Range/Units 12:45 Total Bilirubin 0.7 (0.2-1) mg/dl AST 11 L (15-37) U/L ALT 30 (12-78) U/L Alkaline Phosphatase 117 (45-117) U/L Albumin 3.9 (3.4-5.0) gm/dl Urine 08/01/19 Range/Units 12:45 Urine Color Yellow Urine Appearance Clear (Clear) Urine pH 5.0 (4.5-7.5) Ur Specific [place] > 1.045 H (1.000-1.030) Urine Protein Trace H (Negative) Urine Glucose (UA) 3+ H (Negative) Diagnostic Findings GALLBLADDER US: IMPRESSION: 1. Normal gallbladder. No gallstones. 2. Hepatomegaly demonstrating fatty change. CT ABD/PELVIS: IMPRESSION: 1. Mild infiltration adjacent to the uncinate process of the pancreas suggestive of acute pancreatitis. A few pancreatic parenchymal calcifications which suggest chronic pancreatitis. 2. Fatty infiltration of the liver. 3. No bowel obstruction. CXR: IMPRESSION: No acute process. Code Status & VTE Plan VTE Prophylaxis Plan VTE Prophylaxis will be ordered: Yes Supervising Physician Co-Signing Physician Notes Pt was seen and examined. Agreed with Keysha SAUCEDA exam, assessment and plan. 64 y/o M with PMH DM II, HTN, dyslipidemia, possible TIA, history denies any fundoplication, history of testicular cancer s/p right orchiectomy and chemo in 2010 scented to ER with complaint of right upper quadrant pain. Pt said that he started to have RUQ tenderness since last . he said that today the pain got worst. Denies any alcohol used. He said that he has not been eating much. Denies any chest pain, palpitation, dizziness and SOB. Gallbladder U/S showed normal gallbladder with no gallstones. CT abd/pelvis showed mild infiltration adjacent to the uncinate process of the pancreas suggestive of acute pancreatitis. A few pancreatic parenchymal calcifications which suggest chronic pancreatitis. Lipase normal. Received IV fluid and pain med in the ER. Will continue IVF. Will keep NPO for now. Will repeat lipase in am. Consider GI consult to arrange for EUS on discharge. Will continue Monitor closely. MD Meek (1) Acute pancreatitis Acute pancreatitis complication: no infection or necrosis Pancreatitis type: unspecified pancreatitis type Qualified Code(s): K85.90 - Acute pancreatitis without necrosis or infection, unspecified
[2019-08-01] MEDS ORDERED: ONDANSETRON INJ 2 MG/ML 2 ML VIAL IV PRN (17:02)
[2019-08-01] MEDS ORDERED: GLUCOSE 10 TABS/TUBE PO PRN (17:09)
[2019-08-01] MEDS ORDERED: CARBOHYDRATES FOR HYPOGLYCEMIA PO PRN (17:09)
[2019-08-01] MEDS ORDERED: GLUCOSE 40% GEL 15 GM TUBE PO PRN (17:09)
[2019-08-01] MEDS ORDERED: GLUCAGON FOR INJ 1 MG VIAL SQ PRN (17:09)
[2019-08-01] MEDS ORDERED: DEXTROSE 50% 50 ML SYRINGE IV PRN (17:09)
[2019-08-01] MEDS: LACTATED RINGER'S 1,000 ML IV SCH ×2 (17:12→22:22)
[2019-08-01] MEDS: MoRPHine SULFATE 4 MG/ML 1 ML CARP\\VIAL IV PRN ×2 (17:43→21:58)
[2019-08-01] MEDS ORDERED: Nursing to Pharmacy Communication ONE (18:36)
[2019-08-01] MEDS: ACETAMINOPHEN 325 MG TAB PO PRN (18:42)
[2019-08-01] MEDS: INSULIN ASPART 100 UNITS/ML 3 ML PEN SC SCH (19:23)
[2019-08-01] MEDS ORDERED: INSULIN GLARGINE SOLOSTAR 100 UNITS/ML 3 ML PEN SC SCH (21:00)
[2019-08-01] MEDS ORDERED: INSULIN ASPART 100 UNITS/ML 3 ML PEN SC SCH (21:00)
[2019-08-01] MEDS: GABAPENTIN 300 MG CAP PO SCH (21:59)
[2019-08-02] MEDS: ACETAMINOPHEN 325 MG TAB PO PRN ×2 (00:02→07:53)
[2019-08-02] MEDS: INSULIN ASPART 100 UNITS/ML 3 ML PEN SC SCH ×5 (00:03→23:56)
[2019-08-02] MEDS: MoRPHine SULFATE 4 MG/ML 1 ML CARP\\VIAL IV PRN ×4 (03:24→21:35)
[2019-08-02 06:32] LABS: Hematocrit (blood only) 42.4 % (42-52); Hemoglobin 14.3 g/dL (14.0-18.0); Mean Corpuscular Hgb Conc 33.7 g/dL (32-36); Mean Corpuscular Volume 91.8 fL (80-100); Platelet Count 203 K/uL (130-400); RDW Coefficient of Variation 13.7 % (11.5-14.5); RDW Standard Deviation 45.6 fL (36.4-46.3); Red Blood Count 4.62 M/uL (4.7-6.1); White Blood Count 6.68 K/uL (4.8-10.8)
[2019-08-02 07:06] LABS: Alanine Aminotransferase 25 U/L (12-78); Albumin Level 3.4 gm/dl (3.4-5.0); BUN Creatinine Ratio 13.1 (10-20); Blood Urea Nitrogen 12 mg/dl (7-18); Calcium 8.7 mg/dl (8.5-10.1); Carbon Dioxide 27 mmol/L (21-32); Chloride 107 mmol/L (98-107); Est GFR (Non-African American) 89.7; Glucose 250 mg/dl (70-99); Lipase 90 U/L (73-393); Potassium 4.6 mmol/L (3.5-5.1); Sodium 138 mmol/L (136-145)
[2019-08-02 07:09] LABS: Alkaline Phosphatase 105 U/L (45-117); Aspartate Aminotransferase 12 U/L (15-37); Bilirubin,Total 0.7 mg/dl (0.2-1); Chol HDL Ratio 2; Cholesterol 111 mg/dl (0-200); Globulin 3.5 gm/dl (2.5-4.0); HDL Cholesterol 48 mg/dl; LDL Cholesterol Calculated 32 mg/dl; Total Protein 6.9 gm/dl (6.4-8.2); Triglycerides 153 mg/dl (0-150); VLDL Cholesterol 31 mg/dl
[2019-08-02] MEDS: ASPIRIN 81 MG ECTAB PO SCH (08:50)
[2019-08-02] MEDS: CLOPIDOGREL BISULFATE 75 MG TAB PO SCH (08:51)
[2019-08-02] MEDS: lisinopriL 10 MG TAB PO SCH (08:51)
[2019-08-02] MEDS ORDERED: PHARMACY GLYCEMIC MGMT CONSULT PRN (08:53)
[2019-08-02] MEDS: LACTATED RINGER'S 1,000 ML IV SCH ×2 (10:01→17:51)
[2019-08-02] MEDS ORDERED: INSULIN GLARGINE SOLOSTAR 100 UNITS/ML 3 ML PEN SC ONE (10:15)
--- NOTE | 2019-08-02 10:21 | Gastrointestinal Consultation ---
Date of Consultation August 02, 2019 Assessment & Plan (1) Acute pancreatitis: 64 year old male with admitted w/ abd pain, RUQ pain nausea w/o vomiting CTAP w/ acute pancreaitits. No gallstones on CTAP or ABD US, LFTs and lipase normal. No weight loss, new medications, ETOH, supplements Treat pancreatitis LR 200/250 mL/hr Antiemetics PRN Analgesia PRN OP EUS in 6-8 weeks w/ [facility] Should follow with regular GI provider for routine GI care Thank you for allowing us to participate in the care of this patient. Please call with any acute changes, questions or concerns. Please see addendum below with additional recommendation from my supervising physician. Present on Admission?: Yes Supervising Physician Co-Signing Physician Notes I have seen and examined the patient and discussed the management with PAM Infante. Admitted through the ER with pain and CT imaging c/w pancreatitis, normal lft's and normal lipase. Pain improving slowly. PE noteable for being alert and oriented, no scleral icterus or visible jaundice, no audible wheezing, normal excursion of chest, abd soft nt nd +bs IV LR for pancreatitis, advance diet as tolerated. Oupatient EUS in 6-8 weeks. History of testicular cancer. Etiology remains unclear as no imaging to suggest gallstones, no recent medications or supplements endorsed. GI will sign off. 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 In the ED pt afebrile, P: 84, R: 18, BP: 159/93, 98% on RA. No leukocytosis, LFTs WNL, Lipase normal. US w/ normal gallbladder, no gallstones but CTAP, mild infiltration adjacent to the uncinate process of the pancreas suggestive of acute pancreatitis. This AM he notes some improvement of his abd pain, no nausea/vomiting. No fevers. No ETOH use No tobacco No new meds Using daily multivitamin, vit D follows w/ outside GI group Allergies Allergy/AdvReac Type Severity Reaction Status Date / Time No Known Allergies Allergy Verified 08/01/19 12:35 Home Medications Home Medications Medication Instructions Recorded Confirmed Type aspirin 81 mg PO DAILY 01/15/18 08/01/19 History atorvastatin [Lipitor] 40 mg PO DAILY 01/15/18 08/01/19 History clopidogrel 75 mg PO DAILY 01/15/18 08/01/19 History glipizide 10 mg PO BIDM 01/15/18 08/01/19 History lisinopril 10 mg PO DAILY 01/15/18 08/01/19 History metformin 1,000 mg PO BID 01/15/18 08/01/19 History pioglitazone [Actos] 45 mg PO DAILY 01/15/18 08/01/19 History sitagliptin [Januvia] 100 mg PO DAILY 01/15/18 08/01/19 History gabapentin 300 mg PO HS 01/18/18 08/01/19 History cholecalciferol (vitamin D3) 25 mcg PO DAILY 08/01/19 08/01/19 History [Vitamin D3] cyanocobalamin (vitamin B-12) 1,000 mcg PO DAILY 08/01/19 08/01/19 History [Vitamin B-12] Patient History Medical History Benign positional vertigo 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 Diabetes (Chronic) Diabetes mellitus, type II H/O low back pain resolved since back surgery History of gastroesophageal reflux (GERD) HTN (hypertension) Hyperlipidemia Kidney stones Obesity Transient ischemic attack (TIA) 10 YEARS AGO - [facility] Surgical History History of appendectomy History of colonoscopy History of ear surgery RT History of laminectomy History of Flo fundoplication History of orchiectomy, unilateral RT History of surgery ANAL FISSURE REPAIR Family History Other Heart disease Stroke Social History Preferred Language: Italian Communication Ability: Effective Supervising Airplane Pilot Required: No Beliefs That Will Affect Care: None Current Living Situation: Spouse Other Information That Helps Us Care for You: No Feels Safe at Home: Yes Safety Concerns: Feels Safe At This Time Smoking Status: Former smoker Second Hand Exposure: No ; Hx Alcohol Use: No Hx Substance Use: No Review of Systems Constitutional: no fever, no chills and no fatigue Respiratory: no cough and no dyspnea Cardiovascular: no chest pain Gastrointestinal: + abdominal pain; no nausea, no coffee ground emesis, no hematemesis, no blood in stools and no melena Physical Exam Constitutional: well developed and well nourished; no acute distress Neck: trachea midline Respiratory: normal respiratory effort, lungs clear to auscultation Cardiovascular: Rate/Rhythm: regular rate and regular rhythm Gastrointestinal (Abdomen): Percussion/Palpation: abdomen soft; abdomen nontender, no guarding, abdomen not rigid and no ascites Skin: no rashes, warm and dry Results & Data ([place]) Vital Signs (Past 12 Hours) Vital Signs Temp Pulse Resp BP Pulse Ox 08/02/19 08:48 140/86 08/02/19 07:04 36.9 C 73 18 143/82 H 97 08/01/19 22:57 37.1 C 74 16 153/74 H 97 Laboratory Results 08/02/19 08/02/19 08/02/19 Range/Units 06:12 06:12 05:58 WBC 6.68 (4.8-10.8) K/uL RBC 4.62 L (4.7-6.1) M/uL Hgb 14.3 (14.0-18.0) g/dL Hct 42.4 (42-52) % MCV 91.8 (80-100) fL MCH 31.0 (25-34) pg MCHC 33.7 (32-36) g/dL RDW Std Deviation 45.6 (36.4-46.3) fL RDW Coeff of Catherine 13.7 (11.5-14.5) % Plt Count 203 (130-400) K/uL MPV 10.0 (7.4-10.4) fL Immature Gran % (Auto) % Neut % (Auto) % Lymph % (Auto) % Union % (Auto) % Eos % (Auto) % Baso % (Auto) % Immature Gran # (Auto) (0.00-0.02) K/uL Neut # (Auto) (1.4-6.5) K/uL Lymph # (Auto) (1.2-3.4) K/uL Union # (Auto) (0.11-0.59) K/uL Eos # (Auto) (0-0.5) K/uL Baso # (Auto) (0-0.2) K/uL Sodium 138 (136-145) mmol/L Potassium 4.6 (3.5-5.1) mmol/L Chloride 107 (98-107) mmol/L Carbon Dioxide 27 (21-32) mmol/L Anion Gap 4.0 (3-11) BUN 12 (7-18) mg/dl Creatinine 0.89 (0.6-1.4) mg/dl Est Cr Clr Drug Dosing Not Reportable Est GFR ( Amer) 104.0 Est GFR (Non-Af Amer) 89.7 BUN/Creatinine Ratio 13.1 (10-20) Glucose 250 H (70-99) mg/dl POC Glucose 238 H (70-99) mg/dl Calcium 8.7 (8.5-10.1) mg/dl Total Bilirubin 0.7 (0.2-1) mg/dl AST 12 L (15-37) U/L ALT 25 (12-78) U/L Alkaline Phosphatase 105 (45-117) U/L Troponin I (0-0.045) ng/ml Total Protein 6.9 (6.4-8.2) gm/dl Albumin 3.4 (3.4-5.0) gm/dl Globulin 3.5 (2.5-4.0) gm/dl Albumin/Globulin Ratio 1.0 (0.9-2) Triglycerides 153 H (0-150) mg/dl Cholesterol 111 (0-200) mg/dl LDL Cholesterol, Calc 32 mg/dl VLDL Cholesterol, Calc 31 mg/dl HDL Cholesterol 48 mg/dl Cholesterol/HDL Ratio 2 Lipase 90 (73-393) U/L Urine Color Urine Appearance (Clear) Urine pH (4.5-7.5) Ur Specific [place] (1.000-1.030) Urine Protein (Negative) Urine Glucose (UA) (Negative) Urine Ketones (Negative) Urine Blood (Negative) Urine Nitrite (Negative) Urine Bilirubin (Negative) Urine Urobilinogen (Negative) Ur Leukocyte Esterase (Negative) Urine WBC (Auto) (0-5) /hpf Urine RBC (Auto) (0-4) /hpf U Hyaline Cast (Auto) (0-5) /lpf U Epithel Cells (Auto) (0-5) /lpf Urine Bacteria (Auto) (Negative) 08/01/19 08/01/19 08/01/19 Range/Units 23:53 22:33 19:22 WBC (4.8-10.8) K/uL RBC (4.7-6.1) M/uL Hgb (14.0-18.0) g/dL Hct (42-52) % MCV (80-100) fL MCH (25-34) pg MCHC (32-36) g/dL RDW Std Deviation (36.4-46.3) fL RDW Coeff of Catherine (11.5-14.5) % Plt Count (130-400) K/uL MPV (7.4-10.4) fL Immature Gran % (Auto) % Neut % (Auto) % Lymph % (Auto) % Union % (Auto) % Eos % (Auto) % Baso % (Auto) % Immature Gran # (Auto) (0.00-0.02) K/uL Neut # (Auto) (1.4-6.5) K/uL Lymph # (Auto) (1.2-3.4) K/uL Union # (Auto) (0.11-0.59) K/uL Eos # (Auto) (0-0.5) K/uL Baso # (Auto) (0-0.2) K/uL Sodium (136-145) mmol/L Potassium (3.5-5.1) mmol/L Chloride (98-107) mmol/L Carbon Dioxide (21-32) mmol/L Anion Gap (3-11) BUN (7-18) mg/dl Creatinine (0.6-1.4) mg/dl Est Cr Clr Drug Dosing Est GFR ( Amer) Est GFR (Non-Af Amer) BUN/Creatinine Ratio (10-20) Glucose (70-99) mg/dl POC Glucose 202 H 235 H 218 H (70-99) mg/dl Calcium (8.5-10.1) mg/dl Total Bilirubin (0.2-1) mg/dl AST (15-37) U/L ALT (12-78) U/L Alkaline Phosphatase (45-117) U/L Troponin I (0-0.045) ng/ml Total Protein (6.4-8.2) gm/dl Albumin (3.4-5.0) gm/dl Globulin (2.5-4.0) gm/dl Albumin/Globulin Ratio (0.9-2) Triglycerides (0-150) mg/dl Cholesterol (0-200) mg/dl LDL Cholesterol, Calc mg/dl VLDL Cholesterol, Calc mg/dl HDL Cholesterol mg/dl Cholesterol/HDL Ratio Lipase (73-393) U/L Urine Color Urine Appearance (Clear) Urine pH (4.5-7.5) Ur Specific [place] (1.000-1.030) Urine Protein (Negative) Urine Glucose (UA) (Negative) Urine Ketones (Negative) Urine Blood (Negative) Urine Nitrite (Negative) Urine Bilirubin (Negative) Urine Urobilinogen (Negative) Ur Leukocyte Esterase (Negative) Urine WBC (Auto) (0-5) /hpf Urine RBC (Auto) (0-4) /hpf U Hyaline Cast (Auto) (0-5) /lpf U Epithel Cells (Auto) (0-5) /lpf Urine Bacteria (Auto) (Negative) 08/01/19 08/01/19 08/01/19 Range/Units 17:20 12:45 12:45 WBC (4.8-10.8) K/uL RBC (4.7-6.1) M/uL Hgb (14.0-18.0) g/dL Hct (42-52) % MCV (80-100) fL MCH (25-34) pg MCHC (32-36) g/dL RDW Std Deviation (36.4-46.3) fL RDW Coeff of Catherine (11.5-14.5) % Plt Count (130-400) K/uL MPV (7.4-10.4) fL Immature Gran % (Auto) % Neut % (Auto) % Lymph % (Auto) % Union % (Auto) % Eos % (Auto) % Baso % (Auto) % Immature Gran # (Auto) (0.00-0.02) K/uL Neut # (Auto) (1.4-6.5) K/uL Lymph # (Auto) (1.2-3.4) K/uL Union # (Auto) (0.11-0.59) K/uL Eos # (Auto) (0-0.5) K/uL Baso # (Auto) (0-0.2) K/uL Sodium 138 (136-145) mmol/L Potassium 4.5 (3.5-5.1) mmol/L Chloride 103 (98-107) mmol/L Carbon Dioxide 25 (21-32) mmol/L Anion Gap 10.0 (3-11) BUN 15 (7-18) mg/dl Creatinine 1.05 (0.6-1.4) mg/dl Est Cr Clr Drug Dosing Not Reportable Est GFR ( Amer) 85.9 Est GFR (Non-Af Amer) 74.1 BUN/Creatinine Ratio 14.5 (10-20) Glucose 295 H (70-99) mg/dl POC Glucose 250 H (70-99) mg/dl Calcium 10.0 (8.5-10.1) mg/dl Total Bilirubin 0.7 (0.2-1) mg/dl AST 11 L (15-37) U/L ALT 30 (12-78) U/L Alkaline Phosphatase 117 (45-117) U/L Troponin I 0.029 (0-0.045) ng/ml Total Protein 7.8 (6.4-8.2) gm/dl Albumin 3.9 (3.4-5.0) gm/dl Globulin 3.9 (2.5-4.0) gm/dl Albumin/Globulin Ratio 1.0 (0.9-2) Triglycerides (0-150) mg/dl Cholesterol (0-200) mg/dl LDL Cholesterol, Calc mg/dl VLDL Cholesterol, Calc mg/dl HDL Cholesterol mg/dl Cholesterol/HDL Ratio Lipase 102 (73-393) U/L Urine Color Yellow Urine Appearance Clear (Clear) Urine pH 5.0 (4.5-7.5) Ur Specific [place] > 1.045 H (1.000-1.030) Urine Protein Trace H (Negative) Urine Glucose (UA) 3+ H (Negative) Urine Ketones Negative (Negative) Urine Blood Negative (Negative) Urine Nitrite Negative (Negative) Urine Bilirubin Negative (Negative) Urine Urobilinogen Negative (Negative) Ur Leukocyte Esterase Negative (Negative) Urine WBC (Auto) 1-5 (0-5) /hpf Urine RBC (Auto) 0-4 (0-4) /hpf U Hyaline Cast (Auto) 1-5 (0-5) /lpf U Epithel Cells (Auto) 0-5 (0-5) /lpf Urine Bacteria (Auto) Negative (Negative) 08/01/19 Range/Units 12:45 WBC 7.54 (4.8-10.8) K/uL RBC 5.03 (4.7-6.1) M/uL Hgb 15.8 (14.0-18.0) g/dL Hct 46.1 (42-52) % MCV 91.7 (80-100) fL MCH 31.4 (25-34) pg MCHC 34.3 (32-36) g/dL RDW Std Deviation 45.6 (36.4-46.3) fL RDW Coeff of Catherine 13.8 (11.5-14.5) % Plt Count 232 (130-400) K/uL MPV 10.1 (7.4-10.4) fL Immature Gran % (Auto) 0.4 % Neut % (Auto) 64.0 % Lymph % (Auto) 24.4 % Union % (Auto) 9.2 % Eos % (Auto) 1.5 % Baso % (Auto) 0.5 % Immature Gran # (Auto) 0.03 H (0.00-0.02) K/uL Neut # (Auto) 4.83 (1.4-6.5) K/uL Lymph # (Auto) 1.84 (1.2-3.4) K/uL Union # (Auto) 0.69 H (0.11-0.59) K/uL Eos # (Auto) 0.11 (0-0.5) K/uL Baso # (Auto) 0.04 (0-0.2) K/uL Sodium (136-145) mmol/L Potassium (3.5-5.1) mmol/L Chloride (98-107) mmol/L Carbon Dioxide (21-32) mmol/L Anion Gap (3-11) BUN (7-18) mg/dl Creatinine (0.6-1.4) mg/dl Est Cr Clr Drug Dosing Est GFR ( Amer) Est GFR (Non-Af Amer) BUN/Creatinine Ratio (10-20) Glucose (70-99) mg/dl POC Glucose (70-99) mg/dl Calcium (8.5-10.1) mg/dl Total Bilirubin (0.2-1) mg/dl AST (15-37) U/L ALT (12-78) U/L Alkaline Phosphatase (45-117) U/L Troponin I (0-0.045) ng/ml Total Protein (6.4-8.2) gm/dl Albumin (3.4-5.0) gm/dl Globulin (2.5-4.0) gm/dl Albumin/Globulin Ratio (0.9-2) Triglycerides (0-150) mg/dl Cholesterol (0-200) mg/dl LDL Cholesterol, Calc mg/dl VLDL Cholesterol, Calc mg/dl HDL Cholesterol mg/dl Cholesterol/HDL Ratio Lipase (73-393) U/L Urine Color Urine Appearance (Clear) Urine pH (4.5-7.5) Ur Specific [place] (1.000-1.030) Urine Protein (Negative) Urine Glucose (UA) (Negative) Urine Ketones (Negative) Urine Blood (Negative) Urine Nitrite (Negative) Urine Bilirubin (Negative) Urine Urobilinogen (Negative) Ur Leukocyte Esterase (Negative) Urine WBC (Auto) (0-5) /hpf Urine RBC (Auto) (0-4) /hpf U Hyaline Cast (Auto) (0-5) /lpf U Epithel Cells (Auto) (0-5) /lpf Urine Bacteria (Auto) (Negative) (1) Acute pancreatitis Acute pancreatitis complication: no infection or necrosis Pancreatitis type: unspecified pancreatitis type Qualified Code(s): K85.90 - Acute pancreatitis without necrosis or infection, unspecified
--- NOTE | 2019-08-02 13:50 | Pharmacy Report ---
Glycemic Control Consultation - Date of Service August 02, 2019 - Scope Scope: Glycemic Pharmacist consulted for glycemic control and to write orders per [facility] inpatient glycemic control protocol. - Objective Weight: 124.8 kg Accuchecks BSG (last 24hrs): 08/01/19 08/01/19 08/01/19 17:20 19:22 22:33 Glucose POC Glucose 250 H 218 H 235 H 08/01/19 08/02/19 08/02/19 23:53 05:58 06:12 Glucose 250 H POC Glucose 202 H 238 H 08/02/19 12:10 Glucose POC Glucose 222 H Laboratory Data (last 24hrs): 08/02/19 06:12 Potassium 4.6 Carbon Dioxide 27 Anion Gap 4.0 Creatinine 0.89 Est Cr Clr Drug Dosing Not Reportable - Recent Pertinent Medications Outpatient Anti-diabetic Regimen: * Glipizide 10 mg BID * Metformin 1 gm BID * Actos 45 mg daily * Januvia 100 mg daily * A1c = 10.8 % 07/02/19 INPATIENT INSULIN REGIMEN AND CAUSES OF INSULIN RESISTANCE: - Assessment & Plan Assessment & Plan: ASSESSMENT: * 64 y/o male admitted for acute pancreatitis. H/o poorly controlled T2DM, on multiple oral meds as an outpatient. Patient currently NPO but BSGs have remained in the 200s, even with 12 units of Lantus given last evening. * Will adjust basal/bolus insulin scale as per weight based dosing calculator. Basal insulin was placed on hold by provider this AM but this was just until we could evaluate. PLAN FOR INPATIENT GLYCEMIC CONTROL: * Holding outpatient oral diabetes medications * Basal insulin - increase * Lantus 20 units (0.15 units/kg of actual body weight) x 1 now, then 0-20 units BID per BSG scale (see order details) * Bolus insulin - tighten CF/CR and goal range * NovoLog per scale ACHS or Q6hrs while NPO * Goal Range: Low 110 mg/dL - High 140 mg/dL * Correction Factor: 20 mg/dL/unit * Nutritional / Prandial insulin per carb ratio of 1 unit per 6 grams CHO consumed * Please note that the plan above was derived based on current level of insulin resistance and hospital stress. These recommendations are appropriate for inpatient admission only. Plan of care upon discharge will need to be reassessed to avoid potential outpatient hypo/hyperglycemia. Thank you.
--- NOTE | 2019-08-02 15:39 | Hospitalist Progress Note ---
Date of Service August 02, 2019 Assessment & Plan (1) RUQ abdominal pain: (2) Acute pancreatitis: Unclear etiology, possible passed gallbladder stone Per admitting service notes: Pt is 64 y/o M with PMH DM II, HTN, dyslipidemia, possible TIA, history denies any fundoplication, history of testicular cancer s/p right orchiectomy and chemo in 2010 scented to ER with complaint of right upper quadrant burning pain x5 days. Decreased appetite. Denies fever/chills, N/V/D/C In ER pt afebrile, P: 84, R: 18, BP: 159/93, 98% on RA. No leukocytosis, LFTs WNL, Lipase normal Gallbladder US 1. Normal gallbladder. No gallstones. 2. Hepatomegaly demonstrating fatty change. CT abd/pelvis:1. Mild infiltration adjacent to the uncinate process of the pancreas suggestive of acute pancreatitis. A few pancreatic parenchymal calcifications which suggest chronic pancreatitis. 2. Fatty infiltration of the liver. 3. No bowel obstruction. 08/02/2019 Patient is clinically improving Lipase normal Gallbladder ultrasound: No cholelithiasis GI consulted, unclear etiology, the patient does not consume alcohol, no gallstones on gallbladder ultrasound Recommend to continue present management, outpatient endoscopic ultrasound in 6 to 8 weeks Continue IV LR, continue n.p.o. status, except for ice chips and sips of water, continue pain control Anticipate advancing the diet tomorrow morning, starting with clear liquids (3) Diabetes mellitus, type II: A1c: 10.8 on 07/02/2019 BSG 295 in ER -Hold glipizide, metformin, actos, januvia -Novolog, Lantus sliding scale per protocol Pharmacy glycemic management ordered, appreciate input (4) Transient ischemic attack (TIA): -Continue aspirin, plavix (5) HTN (hypertension): -Continue lisinopril (6) Hyperlipidemia: -Hold statin for now while NPO DVT Prophylaxis -SCDs Disposition: Pending, anticipate discharge to home medically stable Admission and Anticipated Discharge Date Admission Date: August 01, 2019 Subjective Follow-up for acute pancreatitis Seen resting in bed side chair, comfortable, not in distress States he still has epigastric pain, but improved compared to yesterday No nausea, no vomiting, no chills Denies chest pain or shortness of breath, palpitations, dizziness No BMs today, positive flatus No other symptoms Review of Systems Review of Systems: All systems reviewed & are unremarkable except as noted in HPI & below Physical Exam Physical Exam: General- oriented x 3, not in distress, speaks in sentences with no effort or accessory muscle use Head- atraumatic Eyes- PERRL, EOMI, anicteric ENT- oropharynx clear Neck- supple, no JVD, no adenopathy, no thyromegaly; carotids +2/2, no bruits appreciated Lungs- clear to auscultation bilaterally, no rales/wheezes Heart- normal rate, regular rhythm; no murmur, no gallop, no rub appreciated Abdomen- normal bowel sounds, nondistended, soft, mild tenderness on the upper quadrants, no tenderness on the lower quadrants, no masses or hepatosplenomegaly Extremities- no pretibial edema, no calf tenderness; peripheral pulses intact Neuro- alert, oriented x 3; CN 2-12 grossly intact; motor 5/5 bilaterally;sensation 100% on all extremities; no other gross focal neurologic deficits Skin- warm & dry Results & Data Results & Data ([facility]) Vital Signs (Past 12 Hours) Vital Signs Temp Pulse Resp BP Pulse Ox 08/02/19 15:01 37.1 C 66 18 131/71 95 08/02/19 08:48 140/86 08/02/19 07:04 36.9 C 73 18 143/82 H 97 Laboratory Results Laboratory Results - last 24 hr 08/01/19 08/01/19 08/01/19 17:20 19:22 22:33 WBC RBC Hgb Hct MCV MCH MCHC RDW Std Deviation RDW Coeff of Catherine Plt Count MPV Sodium Potassium Chloride Carbon Dioxide Anion Gap BUN Creatinine Est Cr Clr Drug Dosing Est GFR ( Amer) Est GFR (Non-Af Amer) BUN/Creatinine Ratio Glucose POC Glucose 250 H 218 H 235 H Calcium Total Bilirubin AST ALT Alkaline Phosphatase Total Protein Albumin Globulin Albumin/Globulin Ratio Triglycerides Cholesterol LDL Cholesterol, Calc VLDL Cholesterol, Calc HDL Cholesterol Cholesterol/HDL Ratio Lipase 08/01/19 08/02/19 08/02/19 23:53 05:58 06:12 WBC 6.68 RBC 4.62 L Hgb 14.3 Hct 42.4 MCV 91.8 MCH 31.0 MCHC 33.7 RDW Std Deviation 45.6 RDW Coeff of Catherine 13.7 Plt Count 203 MPV 10.0 Sodium Potassium Chloride Carbon Dioxide Anion Gap BUN Creatinine Est Cr Clr Drug Dosing Est GFR ( Amer) Est GFR (Non-Af Amer) BUN/Creatinine Ratio Glucose POC Glucose 202 H 238 H Calcium Total Bilirubin AST ALT Alkaline Phosphatase Total Protein Albumin Globulin Albumin/Globulin Ratio Triglycerides Cholesterol LDL Cholesterol, Calc VLDL Cholesterol, Calc HDL Cholesterol Cholesterol/HDL Ratio Lipase 08/02/19 08/02/19 06:12 12:10 WBC RBC Hgb Hct MCV MCH MCHC RDW Std Deviation RDW Coeff of Catherien Plt Count MPV Sodium 138 Potassium 4.6 Chloride 107 Carbon Dioxide 27 Anion Gap 4.0 BUN 12 Creatinine 0.89 Est Cr Clr Drug Dosing Not Reportable Est GFR ( Amer) 104.0 Est GFR (Non-Af Amer) 89.7 BUN/Creatinine Ratio 13.1 Glucose 250 H POC Glucose 222 H Calcium 8.7 Total Bilirubin 0.7 AST 12 L ALT 25 Alkaline Phosphatase 105 Total Protein 6.9 Albumin 3.4 Globulin 3.5 Albumin/Globulin Ratio 1.0 Triglycerides 153 H Cholesterol 111 LDL Cholesterol, Calc 32 VLDL Cholesterol, Calc 31 HDL Cholesterol 48 Cholesterol/HDL Ratio 2 Lipase 90 (1) Acute pancreatitis Acute pancreatitis complication: no infection or necrosis Pancreatitis type: unspecified pancreatitis type Qualified Code(s): K85.90 - Acute pancreatitis without necrosis or infection, unspecified
[2019-08-02] MEDS ORDERED: INSULIN ASPART 100 UNITS/ML 3 ML PEN SC SCH (18:45)
[2019-08-02] MEDS: INSULIN GLARGINE SOLOSTAR 100 UNITS/ML 3 ML PEN SC SCH (21:30)
[2019-08-02] MEDS: GABAPENTIN 300 MG CAP PO SCH (21:31)
[2019-08-03] MEDS: INSULIN ASPART 100 UNITS/ML 3 ML PEN SC SCH ×4 (06:05→21:00)
[2019-08-03] MEDS: LACTATED RINGER'S 1,000 ML IV SCH ×3 (07:56→17:45)
[2019-08-03] MEDS: lisinopriL 10 MG TAB PO SCH (07:56)
[2019-08-03] MEDS: CLOPIDOGREL BISULFATE 75 MG TAB PO SCH (07:56)
[2019-08-03] MEDS: ASPIRIN 81 MG ECTAB PO SCH (07:56)
[2019-08-03] MEDS: INSULIN GLARGINE SOLOSTAR 100 UNITS/ML 3 ML PEN SC SCH ×2 (08:59→21:00)
[2019-08-03] MEDS ORDERED: INSULIN GLARGINE SOLOSTAR 100 UNITS/ML 3 ML PEN SC ONE (12:15)
--- NOTE | 2019-08-03 12:33 | Pharmacy Report ---
Pharmacy Glycemic Short Note 2 - Date of Service August 03, 2019 - Glycemic Short BSG Results (Last 24 hours): 08/02/19 08/02/19 08/02/19 17:59 21:06 23:55 POC Glucose 148 H 159 H 152 H 08/03/19 08/03/19 08/03/19 06:03 08:08 11:58 POC Glucose 155 H 133 H 168 H OUTPATIENT ANTIDIABETIC REGIMEN: * Glipizide 10 mg BID * Metformin 1 gm BID * Actos 45 mg daily * Januvia 100 mg daily * A1c = 10.8 % 07/02/19 INPATIENT INSULIN REGIMEN AND CAUSES OF INSULIN RESISTANCE: ASSESSMENT: 08/02 * Mr. Sheriff required 40 units of insulin yesterday * He remains NPO * Anticipate basal requirements to be between 20-40 units/day 08/01 * 64 y/o male admitted for acute pancreatitis. H/o poorly controlled T2DM, on multiple oral meds as an outpatient. Patient currently NPO but BSGs have remained in the 200s, even with 12 units of Lantus given last evening. * Will adjust basal/bolus insulin scale as per weight based dosing calculator. Basal insulin was placed on hold by provider this AM but this was just until we could evaluate. PLAN FOR INPATIENT GLYCEMIC CONTROL: * Hold outpatient oral diabetes medications * Basal insulin - adjust BSG scale * Lantus 0-20 units BID per ordered scale (see EMR) * He ended up not receiving Lantus this AM due to his BSG being below the ordered scale. Will adjust scale slightly and order now dose of 10 units. * Bolus insulin - no changes * NovoLog per scale ACHS or Q6hrs while NPO * Goal Range: Low 110 mg/dL - High 140 mg/dL * Correction Factor: 20 mg/dL/unit * Nutritional / Prandial insulin per carb ratio of 1 unit per 6 grams CHO consumed PLAN FOR DISCHARGE: * A1c 10.8% on 07/02/19 * Goal A1c < 7% based on age/comorbidities * Triple therapy with metformin + basal insulin + GLP1 or prandial insulin is preferred; however, patient may only be willing to initiate a single in jectable medication at first * If willing to start basal insulin, recommend insulin glargine 30 units qHS initially * Consider d/c'ing glipizide when insulin is initiated
--- NOTE | 2019-08-03 19:59 | Hospitalist Progress Note ---
Date of Service August 03, 2019 Assessment & Plan (1) RUQ abdominal pain: (2) Acute pancreatitis: Unclear etiology, possible passed gallbladder stone Per admitting service notes: Pt is 64 y/o M with PMH DM II, HTN, dyslipidemia, possible TIA, history denies any fundoplication, history of testicular cancer s/p right orchiectomy and chemo in 2010 scented to ER with complaint of right upper quadrant burning pain x5 days. Decreased appetite. Denies fever/chills, N/V/D/C In ER pt afebrile, P: 84, R: 18, BP: 159/93, 98% on RA. No leukocytosis, LFTs WNL, Lipase normal Gallbladder US 1. Normal gallbladder. No gallstones. 2. Hepatomegaly demonstrating fatty change. CT abd/pelvis:1. Mild infiltration adjacent to the uncinate process of the pancreas suggestive of acute pancreatitis. A few pancreatic parenchymal calcifications which suggest chronic pancreatitis. 2. Fatty infiltration of the liver. 3. No bowel obstruction. 08/03/2019 Continues to improve clinically Lipase normal Gallbladder ultrasound: No cholelithiasis GI consulted, unclear etiology, the patient does not consume alcohol, no gallstones on gallbladder ultrasound Recommend to continue present management, outpatient endoscopic ultrasound in 6 to 8 weeks Continue to advance diet as tolerated Anticipate discharge home tomorrow if patient continues to do well (3) Diabetes mellitus, type II: A1c: 10.8 on 07/02/2019 BSG 295 in ER -Hold glipizide, metformin, actos, januvia -Novolog, Lantus sliding scale per protocol Pharmacy glycemic management ordered, appreciate input (4) Transient ischemic attack (TIA): -Continue aspirin, plavix (5) HTN (hypertension): -Continue lisinopril (6) Hyperlipidemia: -Hold statin for now while NPO DVT Prophylaxis -SCDs Encouraged to ambulate frequently Disposition: Pending, anticipate discharge to home medically stable Admission and Anticipated Discharge Date Admission Date: August 01, 2019 Subjective Follow-up for acute pancreatitis Seen resting in bedside chair, comfortable, not in distress States he continues to feel improved Abdominal pain has resolved, only mild twitches in the epigastric region Tolerated clear liquids and full liquid for dinner Positive BMs, no blood No shortness of breath, fevers or chills No other symptoms Review of Systems Review of Systems: All systems reviewed & are unremarkable except as noted in HPI & below Physical Exam Physical Exam: General- oriented x 3, not in distress, speaks in sentences wit h no effort or accessory muscle use Eyes- anicteric Neck- no JVD Lungs- clear breath sounds bilaterally, crackles, no wheezing bilaterally Heart- normal rate, regular rhythm; no murmurs Abdomen- normal bowel sounds, nondistended, soft, nontender Extremities- no pretibial edema, no calf tenderness Neuro- alert, oriented x 3; no gross focal neurologic deficits Skin- warm & dry Results & Data Results & Data ([facility]) Vital Signs (Past 12 Hours) Vital Signs Temp Pulse Resp BP Pulse Ox 08/03/19 15:19 37.3 C 72 17 140/78 98 08/03/19 08:01 36.8 C 71 16 156/84 H 97 (1) Acute pancreatitis Acute pancreatitis complication: no infection or necrosis Pancreatitis type: unspecified pancreatitis type Qualified Code(s): K85.90 - Acute pancreatitis without necrosis or infection, unspecified
[2019-08-03] MEDS: GABAPENTIN 300 MG CAP PO SCH (20:59)
[2019-08-04 05:59] LABS: Blood Urea Nitrogen 7 mg/dl (7-18); Calcium 8.8 mg/dl (8.5-10.1); Carbon Dioxide 27 mmol/L (21-32); Chloride 110 mmol/L (98-107); Est GFR (African American) 104.5; Est GFR (Non-African American) 90.1; Glucose 135 mg/dl (70-99); Potassium 3.4 mmol/L (3.5-5.1); Sodium 144 mmol/L (136-145)
[2019-08-04] MEDS: lisinopriL 10 MG TAB PO SCH (08:28)
[2019-08-04] MEDS: CLOPIDOGREL BISULFATE 75 MG TAB PO SCH (08:29)
[2019-08-04] MEDS: ASPIRIN 81 MG ECTAB PO SCH (08:29)
[2019-08-04] MEDS ORDERED: POTASSIUM CHLORIDE 20 MEQ TABCR PO STA (08:39)
[2019-08-04] MEDS: INSULIN ASPART 100 UNITS/ML 3 ML PEN SC SCH ×3 (08:55→17:42)
[2019-08-04] MEDS: INSULIN GLARGINE SOLOSTAR 100 UNITS/ML 3 ML PEN SC SCH (08:57)
--- NOTE | 2019-08-04 16:28 | Hospitalist Progress Note ---
Date of Service August 04, 2019 Assessment & Plan (1) RUQ abdominal pain: (2) Acute pancreatitis: Unclear etiology, possible passed gallbladder stone Per admitting service notes: Pt is 64 y/o M with PMH DM II, HTN, dyslipidemia, possible TIA, history denies any fundoplication, history of testicular cancer s/p right orchiectomy and chemo in 2010 scented to ER with complaint of right upper quadrant burning pain x5 days. Decreased appetite. Denies fever/chills, N/V/D/C In ER pt afebrile, P: 84, R: 18, BP: 159/93, 98% on RA. No leukocytosis, LFTs WNL, Lipase normal Gallbladder US 1. Normal gallbladder. No gallstones. 2. Hepatomegaly demonstrating fatty change. CT abd/pelvis:1. Mild infiltration adjacent to the uncinate process of the pancreas suggestive of acute pancreatitis. A few pancreatic parenchymal calcifications which suggest chronic pancreatitis. 2. Fatty infiltration of the liver. 3. No bowel obstruction. 08/04/2019 Abdominal pain resolved, clinically much better Lipase normal Gallbladder ultrasound: No cholelithiasis GI consulted, unclear etiology, the patient does not consume alcohol, no gallstones on gallbladder ultrasound Recommend to continue present management, outpatient endoscopic ultrasound in 6 to 8 weeks Continue to advance diet, if tolerating regular diet for supper, patient may be discharged Follow up with PCP next week (3) Diabetes mellitus, type II: A1c: 10.8 on 07/02/2019 BSG 295 in ER -Hold glipizide, metformin, actos, januvia -Novolog, Lantus sliding scale per protocol Pharmacy glycemic management ordered, appreciate input --Resume usual regimen (4) Transient ischemic attack (TIA): -Continue aspirin, plavix (5) HTN (hypertension): -Continue lisinopril (6) Hyperlipidemia: continue Statin DVT Prophylaxis -SCDs Encouraged to ambulate frequently Disposition: Discharge to home today Follow-up with PCP this week Admission and Anticipated Discharge Date Admission Date: August 01, 2019 Subjective Follow-up for acute pancreatitis Seen resting in bedside chair, comfortable, not in distress Tolerating full liquids so far Denies abdominal pain, no nausea or vomiting, positive flatus No shortness of breath, chest pain, palpitations, dizziness No other symptoms Review of Systems Review of Systems: All systems reviewed & are unremarkable except as noted in HPI & below Physical Exam Physical Exam: General- oriented x 3, not in distress, speaks in sentences with no effort or accessory muscle use Eyes- anicteric Neck- no JVD Lungs- clear breath sounds bilaterally No crackles No wheezing Heart- normal rate, regular rhythm; no murmurs Abdomen- normal bowel sounds, nondistended, soft, nontender Extremities- no pretibial edema, no calf tenderness Neuro- alert, oriented x 3; no gross focal neurologic deficits Skin- warm & dry Results & Data Results & Data ([facility]) Vital Signs (Past 12 Hours) Vital Signs Temp Pulse Resp BP Pulse Ox 08/04/19 15:08 36.9 C 64 17 129/84 99 08/04/19 07:14 36.7 C 63 16 142/85 H 96 Laboratory Results Laboratory Results - last 24 hr 08/03/19 08/03/19 08/04/19 17:25 20:52 05:01 Sodium 144 Potassium 3.4 L D Chloride 110 H Carbon Dioxide 27 Anion Gap 7.0 BUN 7 D Creatinine 0.88 Est Cr Clr Drug Dosing Not Reportable Est GFR ( Amer) 104.5 Est GFR (Non-Af Amer) 90.1 BUN/Creatinine Ratio 8.0 L Glucose 135 H POC Glucose 134 H 155 H Calcium 8.8 08/04/19 08/04/19 08/04/19 08:04 12:23 16:14 Sodium Potassium Chloride Carbon Dioxide Anion Gap BUN Creatinine Est Cr Clr Drug Dosing Est GFR ( Amer) Est GFR (Non-Af Amer) BUN/Creatinine Ratio Glucose POC Glucose 141 H 169 H 97 Calcium (1) Acute pancreatitis Acute pancreatitis complication: no infection or necrosis Pancreatitis type: unspecified pancreatitis type Qualified Code(s): K85.90 - Acute pancreatitis without necrosis or infection, unspecified
--- NOTE | 2019-08-04 16:59 | Discharge Summary ---
Date of Service August 04, 2019 Admission HPI Per Admitting Provider Pt is 64 y/o M with PMH DM II, HTN, dyslipidemia, possible TIA, history denies any fundoplication, history of testicular cancer s/p right orchiectomy and chemo in 2010 scented to ER with complaint of right upper quadrant pain x5 days.Patient describes the pain as burning sensation. Has been applying heating pad or taking a warm shower which helps relieve pain sometimes. Patient reports decreased appetite. Denies any increased abdominal pain with eating. Denies nausea, vomiting, diarrhea, constipation, fever, chills. This morning had half a cup of milk and a cookie. Patient states that he lives 40 pound bags of mulch. Denies any known injury or trauma. Denies any new medications or medication changes. Denies diaphoresis, MCKEON, dizziness, syncope, vision changes, neck pain, CP, SOB, orthopnea, palpitations, cough, sore throat, choking, otalgia, rhinorrhea, paresthesias, weakness, extremity weakness, extremity edema, rashes, urinary symptoms. Admission Exam Per Admitting Provider General: no distress, obese Head: normocephalic, atraumatic Eyes: PERRL, EOM's intact, conjunctiva non-injected, anicteric ENT: normal inspection external ears, nose, mucous membranes moist Neck: supple, trachea midline Lungs: clear, no respiratory distress, no wheezing/rhonchi/rales CV: RRR, no murmur, no pretibial edema Abd: normal BS, soft, protuberant, mild tenderness to palpation RUQ and epigastric region without rebound or guarding; no rashes or skin discoloration noted Ext: no cyanosis, no calf tenderness Neuro: A&O x 3, no focal deficits noted, normal affect Skin: warm, dry Principal Diagnosis Acute pancreatitis Discharge Exam General- oriented x 3, not in distress, speaks in sentences with no effort or accessory muscle use Eyes- anicteric Neck- no JVD Lungs- clear breath sounds bilaterally No crackles No wheezing Heart- normal rate, regular rhythm; no murmurs Abdomen- normal bowel sounds, nondistended, soft, nontender Extremities- no pretibial edema, no calf tenderness Neuro- alert, oriented x 3; no gross focal neurologic deficits Skin- warm & dry Discharge Data Allergies Allergy/AdvReac Type Severity Reaction Status Date / Time No Known Allergies Allergy Verified 08/01/19 12:35 Consultations 08/01/19 15:45 ED Decision to Admit Stat 08/02/19 09:08 Consult Gastroenterology Routine Ordered Studies 08/01/19 12:27 US gallbladder Stat FINDINGS: Pancreas: The pancreatic head and tail are obscured by overlying bowel gas. The remaining portions of the pancreas are within normal limits. Liver: The liver is echogenic consistent with fatty change. Mildly enlarged measuring 19 cm in length. Gallbladder: No gallbladder wall thickening. No gallstones. CBD: 5 mm. Right kidney: No hydronephrosis. IMPRESSION: 1. Normal gallbladder. No gallstones. 2. Hepatomegaly demonstrating fatty change. 08/01/19 14:03 CT abd pelvis IV con only Stat FINDINGS: Lung bases are unremarkable. There is fatty infiltration of the liver. The spleen and adrenal gland are unremarkable. Note is made of a 1.4 cm cyst within lower pole of the right kidney. There is a probable cyst within the midpole of the left kidney. A few pancreatic parenchymal calcifications are noted. There is mild infiltration centered on the uncinate process of the pancreas. No peripancreatic fluid collections are present. No biliary or pancreatic ductal dilatation is present. There is no evidence for a bowel obstruction. Caliber and wall thickness of small and large bowel are normal. No suspicious osseous lesions are present. No urinary calculi are identified. IMPRESSION: 1. Mild infiltration adjacent to the uncinate process of the pancreas suggestive of acute pancreatitis. A few pancreatic parenchymal calcifications which suggest chronic pancreatitis. 2. Fatty infiltration of the liver. 3. No bowel obstruction. Hospital Course (1) RUQ abdominal pain: (2) Acute pancreatitis: Unclear etiology, possible passed gallbladder stone Per admitting service notes: Pt is 64 y/o M with PMH DM II, HTN, dyslipidemia, possible TIA, history denies any fundoplication, history of testicular cancer s/p right orchiectomy and chemo in 2010 scented to ER with complaint of right upper quadrant burning pain x5 days. Decreased appetite. Denies fever/chills, N/V/D/C In ER pt afebrile, P: 84, R: 18, BP: 159/93, 98% on RA. No leukocytosis, LFTs WNL, Lipase normal Gallbladder US 1. Normal gallbladder. No gallstones. 2. Hepatomegaly demonstrating fatty change. CT abd/pelvis:1. Mild infiltration adjacent to the uncinate process of the pancreas suggestive of acute pancreatitis. A few pancreatic parenchymal calcifications which suggest chronic pancreatitis. 2. Fatty infiltration of the liver. 3. No bowel obstruction. Evaluated by gastroenterology service Unclear etiology at this point the patient does not consume alcohol, no gallstones on gallbladder ultrasound, no new medications Given vigorous IV fluids, placed on bowel rest Lipase remained within normal limits Diet slowly advanced Abdominal pain resolved, clinically much better GI recommends outpatient endoscopic ultrasound in 6 to 8 weeks Low-fat, low dairy diet advised Follow-up with PCP within 1 week (3) Hepatomegaly: Seen on liver ultrasound: Liver: The liver is echogenic consistent with fatty change. Mildly enlarged measuring 19 cm in length. --Advised low-fat diet, follow-up as outpatient (4) Diabetes mellitus, type II: A1c: 10.8 on 07/02/2019 --Resume usual regimen Continue to follow closely with PCP (5) Transient ischemic attack (TIA): -Continue aspirin, plavix (6) HTN (hypertension): -Continue lisinopril (7) Hyperlipidemia: continue Statin DVT Prophylaxis -SCDs given Encouraged to ambulate frequently Disposition: Discharge to home Follow-up with PCP this week-scheduling office closed, will request to call patient on Tuesday Total Time Total Time Spent Total Time Spent (In Minutes): 50 minutes Discharge Plan Discharge Items Patient Disposition: Home - Self-Care Reason For Visit: ABDOMINAL PAIN Discharge Diagnosis: Acute pancreatitis Condition on Discharge: Good Activity: Resume your previous activity Driving/Machine Use: No driving if you are having significant abdominal pain Non-emergency contact: Primary Care Provider Call non-emergency contact if: you have any medication questions and you have a fever Follow-up/Referrals: Zechariha Licona MD [Primary Care Provider] - Diet: Carb Consistent or DM2, Heart Healthy and Low Fat Addtl Attending Provider Instructions: Continue to stay well-hydrated. Continue low-fat, non-dairy diet. Please follow-up with Dr. Fernandes within 1 week. The clinic will be calling you for the appointment. You need to have an endoscopic ultrasound in 6 to 8 weeks care of the [facility] gastroenterology clinic. Dr. Fernandes can help arrange this for you. Call your primary care physician or return to the ER immediately if you are having recurrence of symptoms including Persistent abdominal pain, nausea /vomiting, fevers or chills. Pending Studies at Discharge: Yes Studies:: Endoscopic ultrasound at the [facility] gastroenterology clinic in 6 to 8 weeks Stand-Alone Forms: My [facility], Smoking Cessation Medications and DC Order Prescriptions: Continued cyanocobalamin (vitamin B-12) [Vitamin B-12] 1,000 mcg Tablet 1,000 mcg PO DAILY RF: 0 cholecalciferol (vitamin D3) [Vitamin D3] 25 mcg (1,000 unit) Capsule 25 mcg PO DAILY RF: 0 atorvastatin [Lipitor] 40 mg Tablet 40 mg PO DAILY RF: 0 glipizide 10 mg Tablet 10 mg PO BIDM RF: 0 pioglitazone [Actos] 45 mg Tablet 45 mg PO DAILY RF: 0 clopidogrel 75 mg tablet 75 mg PO DAILY RF: 0 aspirin 81 mg Tablet,Delayed Release (Dr/Ec) 81 mg PO DAILY RF: 0 metformin 1,000 mg Tablet 1,000 mg PO BID RF: 0 lisinopril 10 mg Tablet 10 mg PO DAILY RF: 0 Januvia 100 mg Tablet 100 mg PO DAILY RF: 0 gabapentin 300 mg Capsule 300 mg PO HS RF: 0 Discharge Orders: Discharge Order (Routine); Ordered 08/04/19 Ordered By: Hardeep Kauffman Admission Data Admit Date/Time: 08/01/19 15:54 Attending Provider: Hardeep Kauffman Admit Provider: Eugene Eden Primary Care Provider: Zechariah Licona Other Providers: Eugene Eden ; Calli Calderon
--- NOTE | 2019-08-04 17:05 | Discharge Summary ---
Date of Service August 04, 2019 Admission HPI Per Admitting Provider Pt is 64 y/o M with PMH DM II, HTN, dyslipidemia, possible TIA, history denies any fundoplication, history of testicular cancer s/p right orchiectomy and chemo in 2010 scented to ER with complaint of right upper quadrant pain x5 days.Patient describes the pain as burning sensation. Has been applying heating pad or taking a warm shower which helps relieve pain sometimes. Patient reports decreased appetite. Denies any increased abdominal pain with eating. Denies nausea, vomiting, diarrhea, constipation, fever, chills. This morning had half a cup of milk and a cookie. Patient states that he lives 40 pound bags of mulch. Denies any known injury or trauma. Denies any new medications or medication changes. Denies diaphoresis, MCKEON, dizziness, syncope, vision changes, neck pain, CP, SOB, orthopnea, palpitations, cough, sore throat, choking, otalgia, rhinorrhea, paresthesias, weakness, extremity weakness, extremity edema, rashes, urinary symptoms. Admission Exam Per Admitting Provider General: no distress, obese Head: normocephalic, atraumatic Eyes: PERRL, EOM's intact, conjunctiva non-injected, anicteric ENT: normal inspection external ears, nose, mucous membranes moist Neck: supple, trachea midline Lungs: clear, no respiratory distress, no wheezing/rhonchi/rales CV: RRR, no murmur, no pretibial edema Abd: normal BS, soft, protuberant, mild tenderness to palpation RUQ and epigastric region without rebound or guarding; no rashes or skin discoloration noted Ext: no cyanosis, no calf tenderness Neuro: A&O x 3, no focal deficits noted, normal affect Skin: warm, dry Principal Diagnosis Acute pancreatitis Discharge Exam General- oriented x 3, not in distress, speaks in sentences with no effort or accessory muscle use Eyes- anicteric Neck- no JVD Lungs- clear breath sounds bilaterally No crackles No wheezing Heart- normal rate, regular rhythm; no murmurs Abdomen- normal bowel sounds, nondistended, soft, nontender Extremities- no pretibial edema, no calf tenderness Neuro- alert, oriented x 3; no gross focal neurologic deficits Skin- warm & dry Discharge Data Allergies Allergy/AdvReac Type Severity Reaction Status Date / Time No Known Allergies Allergy Verified 08/01/19 12:35 Consultations 08/01/19 15:45 ED Decision to Admit Stat 08/02/19 09:08 Consult Gastroenterology Routine Ordered Studies 08/01/19 12:27 US gallbladder Stat 08/01/19 14:03 CT abd pelvis IV con only Stat Hospital Course (1) RUQ abdominal pain: (2) Acute pancreatitis: Unclear etiology, possible passed gallbladder stone Per admitting service notes: Pt is 64 y/o M with PMH DM II, HTN, dyslipidemia, possible TIA, history denies any fundoplication, history of testicular cancer s/p right orchiectomy and chemo in 2010 scented to ER with complaint of right upper quadrant burning pain x5 days. Decreased appetite. Denies fever/chills, N/V/D/C In ER pt afebrile, P: 84, R: 18, BP: 159/93, 98% on RA. No leukocytosis, LFTs WNL, Lipase normal Gallbladder US 1. Normal gallbladder. No gallstones. 2. Hepatomegaly demonstrating fatty change. CT abd/pelvis:1. Mild infiltration adjacent to the uncinate process of the pancreas suggestive of acute pancreatitis. A few pancreatic parenchymal calcifications which suggest chronic pancreatitis. 2. Fatty infiltration of the liver. 3. No bowel obstruction. Evaluated by gastroenterology service Unclear etiology at this point the patient does not consume alcohol, no gallstones on gallbladder ultrasound, no new medications Given vigorous IV fluids, placed on bowel rest Lipase remained within normal limits Diet slowly advanced Abdominal pain resolved, clinically much better GI recommends outpatient endoscopic ultrasound in 6 to 8 weeks Low-fat, low dairy diet advised Follow-up with PCP within 1 week (3) Hepatomegaly: Seen on liver ultrasound: Liver: The liver is echogenic consistent with fatty change. Mildly enlarged tyrese uring 19 cm in length. --Advised low-fat diet, follow-up as outpatient (4) Diabetes mellitus, type II: A1c: 10.8 on 07/02/2019 --Resume usual regimen Continue to follow closely with PCP (5) Transient ischemic attack (TIA): -Continue aspirin, plavix (6) HTN (hypertension): -Continue lisinopril (7) Hyperlipidemia: continue Statin DVT Prophylaxis -SCDs given Encouraged to ambulate frequently Disposition: Discharge to home Follow-up with PCP this week-scheduling office closed, will request to call patient on Tuesday Discharge Plan Discharge Items Patient Disposition: Home - Self-Care Reason For Visit: ABDOMINAL PAIN Discharge Diagnosis: Acute pancreatitis Condition on Discharge: Good Activity: Resume your previous activity Driving/Machine Use: No driving if you are having significant abdominal pain Non-emergency contact: Primary Care Provider Call non-emergency contact if: you have any medication questions and you have a fever Follow-up/Referrals: Zechariah Licona MD [Primary Care Provider] - Diet: Carb Consistent or DM2, Heart Healthy and Low Fat Addtl Attending Provider Instructions: Continue to stay well-hydrated. Continue low-fat, non-dairy diet. Please follow-up with Dr. Fernandes within 1 week. The clinic will be calling you for the appointment schedule. You need to have an endoscopic ultrasound in 6 to 8 weeks at the [facility]. Dr. Fernandes can help arrange this for you. Call your primary care physician or return to the ER immediately if you are having recurrence of symptoms including Persistent abdominal pain, nausea /vomiting, fevers or chills. Pending Studies at Discharge: Yes Studies:: Endoscopic ultrasound at the [facility] gastroenterology clinic in 6 to 8 weeks Stand-Alone Forms: My [facility], Smoking Cessation Medications and DC Order Prescriptions: Continued cyanocobalamin (vitamin B-12) [Vitamin B-12] 1,000 mcg Tablet 1,000 mcg PO DAILY RF: 0 cholecalciferol (vitamin D3) [Vitamin D3] 25 mcg (1,000 unit) Capsule 25 mcg PO DAILY RF: 0 atorvastatin [Lipitor] 40 mg Tablet 40 mg PO DAILY RF: 0 glipizide 10 mg Tablet 10 mg PO BIDM RF: 0 pioglitazone [Actos] 45 mg Tablet 45 mg PO DAILY RF: 0 clopidogrel 75 mg tablet 75 mg PO DAILY RF: 0 aspirin 81 mg Tablet,Delayed Release (Dr/Ec) 81 mg PO DAILY RF: 0 metformin 1,000 mg Tablet 1,000 mg PO BID RF: 0 lisinopril 10 mg Tablet 10 mg PO DAILY RF: 0 Januvia 100 mg Tablet 100 mg PO DAILY RF: 0 gabapentin 300 mg Capsule 300 mg PO HS RF: 0 Discharge Orders: Discharge Order (Routine); Ordered 08/04/19 Ordered By: Hardeep Kauffman Admission Data Admit Date/Time: 08/01/19 15:54 Attending Provider: Hardeep Kauffman Admit Provider: Eugene Eden Primary Care Provider: Zechariah Licona Other Providers: Eugene Eden ; Calli Calderon
== END 2019-08-04 19:15 | disposition home or self-care (01) ==
LOC: ED 11:48 → INTOOBSV 15:54 → SUATTDRO 15:54 → 3E 15:54